=== PATIENT | female | born 1960 | race Caucasian/White ===

== ENCOUNTER 2019-01-02 16:07 | Outpatient (REF) | payer MEDICAID, SELFPAY ==
--- NOTE | 2019-01-02 14:45 | ENDOMET_PTH ---
PATIENT: Mary Lou Billingsley LOC: [facility] U#:[id number] AGE/SX: 58/F ROOM: RE01/02/[address]: Krishna Salcido MD : 1960 BED: DIS: 01/02/2019 SPEC #: [id number] RECD: 01/02/19 17:53 STATUS: CHANDLER REQ #: [id number] SABIHA: 01/02/19 14:[address]: Krishna Salcido DEPT: Surgical Specimen RECD BY: Kenia Milton ENTERED: 01/02/19 17:53 SP TYPE: Endomet OTHR DR: Cecil Uribe MD Tissues: 1 - ENDOMETRIUM BX/CURRETTE Procedures: GROSS AND MICRO LEVEL 4 Comments: [id number]
--- NOTE | 2019-01-02 14:45 | PAPFT_PTH ---
PATIENT: Mary Lou Billingsley LOC: [facility] U#:[id number] AGE/SX: 58/F ROOM: RE01/02/[address]: Krishna Salcido MD : 1960 BED: DIS: 01/02/2019 SPEC #: [id number] RECD: 01/02/19 18:26 STATUS: CHANDLER REQ #: [id number] SABIHA: 01/02/19 14:[address]: Krishna Salcido DEPT: [facility] Cytology RECD BY: Kenia Milton ENTERED: 01/02/19 18:26 SP TYPE: PAPFT OTHR DR: Cecil Uribe MD Tissues: 1 - CX/ENDOCX FOR PAP SMEARS Procedures: PAP THIN PREP/UVM Screening HPV DNA PROBE Comments: [id number]
== END 2019-01-02 16:27 ==
LOC: LBN 16:07
PROVIDERS: PCP Family Medicine; Visit Provider Obstetrics & Gynecology
DX: Z12.4 Encounter for screening for malignant neoplasm of cervix (principal); Z11.51 Encounter for screening for human papillomavirus (HPV); N85.8 Other specified noninflammatory disorders of uterus; N95.0 Postmenopausal bleeding
CPT/HCPCS: 88142; 88305; 87624

== ENCOUNTER 2019-01-04 03:34 | Outpatient (CLI) | payer MEDICAID, SELFPAY ==
--- NOTE | 2019-01-04 08:35 | DI.MAMMO_ITS ---
SYMPTOM/DIAGNOSIS: SCREENING, Z12.31 BILATERAL SCREENING MAMMOGRAPHY Mammograms were interpreted according to the usual protocol including computer analysis with CAD system, tomosynthesis and C view imaging. Comparison is made with 2017 and 2018. The breasts are composed of scattered fibroglandular densities, breast density category B. No suspicious masses or suspicious microcalcifications are seen. There has been no significant change. A nipple ring is again noted on the left. IMPRESSION: Category 1, negative mammogram. Yearly screening mammography is recommended. Breast density category B. MQSA ASSESSMENT OF FINDINGS: Negative. Category 1. Patient will receive a letter notifying them of these results. BI-RADS category B. There are scattered areas of fibroglandular density.
== END 2019-01-04 03:54 ==
PROVIDERS: PCP Family Medicine; Visit Provider Family Medicine
DX: Z12.31 Encounter for screening mammogram for malignant neoplasm of breast (principal); N95.0 Postmenopausal bleeding
CPT/HCPCS: 77063; 77067; 76830; 76856

== ENCOUNTER 2019-01-04 03:46 | Outpatient (CLI) | payer MEDICAID, SELFPAY ==
--- NOTE | 2019-01-04 07:18 | DI.US_ITS ---
SYMPTOMS/DIAGNOSIS: POSTMENOPAUSAL BLEEDING, N95.0 PELVIC ULTRASOUND: Transabdominal and transvaginal exams were performed. The transabdominal images are limited by lack of bladder distention. The uterus measures 6.3 x 3.2 x 4.5 cm. The endometrial stripe appears abnormally thickened for postmenopausal patient, measuring 8 mm. No focal endometrial abnormality is seen. There is a question of an anterior fibroid vs artifact. The right ovary was not able to be visualized. The left ovary is normal in size. There is no evidence of free fluid or hydronephrosis. IMPRESSION: Abnormally thickened endometrium of 8 mm without focal abnormality.
== END 2019-01-04 04:06 ==
PROVIDERS: PCP Family Medicine; Visit Provider Obstetrics & Gynecology
DX: N95.0 Postmenopausal bleeding (principal)
CPT/HCPCS: 76830; 76856

== ENCOUNTER 2019-01-31 10:28 | Outpatient (CLI) | payer MEDICAID, SELFPAY ==
[2019-01-31 10:53] LABS: Bilirubin Negative (Negative); Blood Small (Negative); Clarity Clear (Clear); Glucose Negative (Negative); Ketones Negative (Negative); Leukocyte Esterase Negative (Negative); Nitrite Negative (Negative); Urobilinogen 0.2 EU/dL (Up TO 0.2)
[2019-01-31 11:04] LABS: Bacteria Moderate HPF (Negative); C & S Indicated? No/Sq. Contamination; Casts Negative LPF (Negative); Crystals Negative HPF (Negative); Epithelial Cells Moderate HPF (Negative); Mucus Moderate (Negative); RBC 0-2 (0-2); WBC 0-2 HPF (0-5)
[2019-01-31 11:06] LABS: Abs Immature Grans 0.02 k/cumm (0.0-0.09); Absolute Basophil Count 0.02 k/cumm (0.0-0.2); Absolute Eosinophil Count 0.11 k/cumm (0.0-0.7); Absolute Lymphocyte Count 2.15 k/cumm (1.2-3.4); Absolute Monocyte Count 0.42 k/cumm (0.11-0.7); Absolute Neutrophil Count 3.52 k/cumm (1.2-6.7); Basophils % 0.3; Eosinophils % 1.8; HCT 47.2 % (36.0-46.0); HGB 15.5 g/dL (12.0-15.5); Immature Grans % 0.3; Lymphocytes % 34.5; Mean Corp. HGB Concentration 32.8 g/dL (32.0-36.0); Mean Corpuscular Hemoglobin 31.6 pg (27.0-33.0); Mean Corpuscular Volume 96.3 fL (80-95); Mean Platelet Volume 10.6 fL (8.0-11.0); Monocytes % 6.7; Neutrophils % 56.4; Platelet Count 234 x1000/uL (130-400); RBC Distribution Width 14.1 % (11.7-14.6); White Blood Cell Count 6.24 k/cumm (4.4-10.8)
[2019-01-31 12:15] LABS: ALT 40 U/L (14-59); AST 17 U/L (15-37); Alkaline Phosphatase 90 U/L (46-116); Anion Gap 7.2 mmol/L (3-11); BUN 14 mg/dL (7-18); Bilirubin, Total 0.6 mg/dL (0.2-1.0); CO2 28.8 mmol/L (21.0-32.0); CREATININE 0.72 mg/dL (0.55-1.02); Calcium 9.1 mg/dL (8.5-10.1); Chloride 104 mmol/L (98-107); Glucose 91 mg/dL (70-100); Potassium 4.8 mmol/L (3.5-5.1); Sodium 140 mmol/L (136-145); TSH (W/Ref FT4) 2.37 uIU/mL (0.36-3.74); Total Protein 7.2 g/dL (6.4-8.2); Vitamin B12 326 pg/mL (193-986)
[2019-02-02 05:47] LABS: Vitamin D 25 Total 28.8 ng/ml (30-100)
== END 2019-01-31 10:48 ==
PROVIDERS: Family Medicine; PCP Family Medicine; Visit Provider Family Medicine
DX: R53.83 Other fatigue (principal); E55.9 Vitamin D deficiency, unspecified; N95.0 Postmenopausal bleeding; Z01.812 Encounter for preprocedural laboratory examination; Z01.818 Encounter for other preprocedural examination
CPT/HCPCS: 36415; 80053; 82306; 85027; 86850; 86900; 86901; 81003; 81015; 82607; 84443; 85025

== ENCOUNTER 2019-02-01 07:37 | Day surgery (SDC) | payer MEDICAID, SELFPAY ==
[2019-02-01 08:00] VITALS: BP 148/92; PULSE 88; RESP 18; TEMP 36.7; O2SAT 95
[2019-02-01] MEDS: Lactated Ringers 1,000 ML 125 ML IV (08:45)
[2019-02-01] MEDS: Lidocaine 1% Multi-Dose 50 ML VIAL (09:30)
--- NOTE | 2019-02-01 09:34 | ENDOMET_PTH ---
PATIENT: Mary Lou Billingsley LOC: [facility] U#:[id number] AGE/SX: 58/F ROOM: RE02/01/[address]: Krishna Salcido MD : 1960 BED: DIS: 02/01/2019 SPEC #: [id number] RECD: 02/01/19 12:47 STATUS: CHANDLER REQ #: [id number] SABIHA: 02/01/19 09:[address]: Krishna Salcido DEPT: Surgical Specimen RECD BY: Kenia Milton ENTERED: 02/01/19 12:47 SP TYPE: Endomet OTHR DR: Cecil Uribe MD Tissues: 1 - ENDOMETRIUM BX/CURRETTE 2 - ENDOMETRIUM BX/CURRETTE Procedures: GROSS AND MICRO LEVEL 4 Comments: [id number]
[2019-02-01 09:50] VITALS: BP 164/97; PULSE 74; RESP 18; TEMP 36.6; O2SAT 95
[2019-02-01 09:55] VITALS: BP 179/96; PULSE 69; RESP 16; TEMP 36.6; O2SAT 96
[2019-02-01 10:00] VITALS: BP 165/88; PULSE 72; RESP 18; TEMP 36.6; O2SAT 96
[2019-02-01 10:15] VITALS: BP 176/77; PULSE 66; RESP 20; TEMP 36.5; O2SAT 98
[2019-02-01 11:00] VITALS: BP 148/90; PULSE 67; RESP 18; TEMP 36; O2SAT 95
--- NOTE | 2019-02-01 16:10 | W.PM.OP ---
Date of service: 02/01/19 Time of Service: 16:10 Operative Note DATE OF PROCEDURE: 02/01/19 PRE-OP DIAGNOSIS: Postmenopausal bleeding, Thickened endometrium POST-OP DIAGNOSIS: same PROCEDURE: Hysteroscopy, D&C, Polypectomy SURGEON: Krishna Salcido ASSISTING SURGEON: Beatriz Phillip ANESTHESIA: GETA ESTIMATED BLOOD LOSS: 0 PATHOLOGY: other (1. Endometrial polyp 2. Endometrial curettings ) COMPLICATIONS: None Patient was transported to: PACU Patient's condition: stable Findings: 1. Large endometrial polyp 2. Small submucosal fibroid Procedure Description: The patient was taken to the operating room and after adequate general anesthesia the patient was placed in lithotomy position. The patient was prepped and draped in usual sterile manner. A weighted speculum was placed in the vagina with good visualization of the cervix. A paracervical block with 10 mL's of 1% plain lidocaine solution was instilled. The anterior lip of the cervix was grasped with a single-tooth tenaculum. The cervix was gently dilated with Pisano dilators. The 5 mm 30 degree hysteroscope with normal saline distention media was advanced without difficulty. A large endometrial polyp appeared to occupy the majority in the medial cavity. Near the fundus along the anterior uterus a small submucosal fibroid was also noted. The hysteroscope was removed. Polyp forceps were used to remove the polyp easily. A sharp curettage was performed and tissue was submitted to pathology. A second pass with hysteroscope was made the polyp had been removed in its entirety. The submucosal fibroid was felt to not be problematic and was left intact. The procedure was concluded. Sponge instrument counts were correct at the conclusion of the procedure. All instrumentation was removed. The patient was transferred to PACU in stable condition.
== END 2019-02-01 11:27 | disposition home or self-care (01) ==
LOC: SUR 07:37
PROVIDERS: PCP Family Medicine; Visit Provider Obstetrics & Gynecology
PROC: 0UDB8ZZ Extraction of Endometrium, Via Natural or Artificial Opening Endoscopic (ICD-10-PCS; CPT 58558; principal; 2019-02-01 09:30)
DX: N95.0 Postmenopausal bleeding (principal); R93.89 Abnormal findings on diagnostic imaging of other specified body structures; N84.0 Polyp of corpus uteri; D25.0 Submucous leiomyoma of uterus; F17.210 Nicotine dependence, cigarettes, uncomplicated
CPT/HCPCS: 58558; 88305; J1100; J1885; J2250; J2405; J3010

== ENCOUNTER 2020-03-13 00:45 | Outpatient (CLI) | payer MEDICAID, SELFPAY ==
--- NOTE | 2020-03-13 06:45 | DI.CTLCSR_ITS ---
EXAM: CT CHEST LUNG CANCER SCREEN CLINICAL HISTORY: Screening for lung cancer, current smoker, F17.210 TECHNIQUE: Imaging Protocol: Axial computed tomography images with coronal and sagittal reformatted images were created and reviewed COMPARISON: No exams were available for comparison FINDINGS: Tracheobronchial tree: Patent . Mediastinum and Ly: No dominant adenopathy or fluid collection. Pulmonary parenchyma: No consolidation or dominant measurable mass. Moderate to severe emphysematous changes. Basilar scarring or atelectasis. Lung Nodules: None. Pleura: No effusion or pneumothorax. Heart: The heart is not dilated. Minimal coronary artery calcifications are seen. Aorta: Thoracic aorta non-dilated.Mild atherosclerotic changes. Upper abdomen: Unremarkable. Bones: Degenerative disc changes. Soft Tissues: Unremarkable. IMPRESSION: Emphysematous changes. No pulmonary nodules or masses. Category Lung RADS Cat 1 - Negative: No nodules and definitely benign nodules Lung-RADS 1.0 CATEGORIES: Category 0 - Prior chest CT exam(s) being located for comparison. Category 1 - Annual screening in 12 months. No nodules or definitely benign nodules. Category 2 - Annual screening in 12 months. Benign appearance. Nodules with low likelihood of becomin g active cancer. Category 3 - 6-month follow-up. Probably benign. Short-term follow-up suggested. Nodules with low lik elihood of becoming active cancer. Category 4A - 3-month follow-up and CT/PET if >8 mm in size. Suspicious finding. Findings which requi re additional testing. Category 4B - Findings which require additional testing and tissue sampling. Suspicious finding. C Added to Any of the Above - History of prior lung cancer screening. S Added to Any of the Above - Significant unexpected other finding. RADIATION DOSE DELIVERED: 69.94mGy.cm Total DLP DATA REPOSITORY: All CT scans at this facility are submitted to the National Radiology Data Registry (NRDR) Dose Index Registry (DIR) with the [employer] (ACR). RADIATION OPTIMIZATION: All CT scans at this facility use at least one of these dose optimization te chniques: automated exposure control; mA and/or kV adjustment per patient size (includes targeted exa ms where dose is matched to clinical indication); or iterative reconstruction.
--- NOTE | 2020-03-13 08:24 | DI.MAMMO_ITS ---
EXAM: MAMMO SCREENING CLINICAL HISTORY: screening, Z12.39 TECHNIQUE: Mammograms were interpreted according to the usual protocol including computer analysis w [employer] CAD system, tomosynthesis and C-view imaging. COMPARISON: 2016 through 2018 FINDINGS: The breasts are composed of scattered fibroglandular densities, Breast Density category B. No suspicious masses or suspicious microcalcifications are seen. No skin thickening or abnormal axillary lymph nodes are seen. There has been no significant change from prior exams. IMPRESSION: BI-RADS Category 1, Negative mammogram Yearly screening mammography is recommended. Breast Density - Category B, scattered fibroglandular densities. A negative radiographic report should not delay biopsy if a dominant or clinically suspicious mass is present. Up to ten percent of cancers are not identified on mammography. A negative report may reinforce clinical impression. Adenosis and dense breasts may obscure an underlying neoplasm. False positive reports average 6 to 10%. Patient will receive a letter notifying them of these results.
== END 2020-03-13 01:05 ==
PROVIDERS: PCP Family Medicine; Visit Provider Nurse Practitioner Family
DX: Z12.31 Encounter for screening mammogram for malignant neoplasm of breast (principal); F17.210 Nicotine dependence, cigarettes, uncomplicated
CPT/HCPCS: 77063; 77067; G0297

== ENCOUNTER 2020-03-13 01:33 | Outpatient (CLI) | payer MEDICAID, SELFPAY ==
[2020-03-13 08:20] LABS: Hemoglobin A1C 5.6 % (<5.7)
[2020-03-13 08:49] LABS: Anion Gap 7.1 mmol/L (3-11); BUN 23 mg/dL (7-18); CO2 28.9 mmol/L (21.0-32.0); CREATININE 0.66 mg/dL (0.55-1.02); Calcium 9.5 mg/dL (8.5-10.1); Calculated LDL 134 mg/dL (<100); Chloride 104 mmol/L (98-107); Cholesterol 209 mg/dL (<200); Glucose 107 mg/dL (74-106); HDL Cholesterol 62 mg/dL (40-60); Sodium 140 mmol/L (136-145); Triglyceride 67 mg/dL (<150)
== END 2020-03-13 01:53 ==
PROVIDERS: PCP Family Medicine; Visit Provider Nurse Practitioner Family
DX: E78.5 Hyperlipidemia, unspecified (principal); E66.9 Obesity, unspecified
CPT/HCPCS: 36415; 80048; 80061; 83036

== ENCOUNTER 2021-04-07 01:51 | Outpatient (CLI) | payer MEDICAID, SELFPAY ==
--- NOTE | 2021-04-07 06:45 | DI.CTLCSR_ITS ---
Exam(s) CT CHEST LUNG CANCER SCREEN EXAM: CT CHEST LUNG CANCER SCREEN CLINICAL HISTORY: Screening for lung cancer,current smoker, f17.210. TECHNIQUE: Imaging Protocol: Low Dose Technique CONTRAST MATERIAL: None COMPARISON: CT CT CHEST LUNG CANCER SCREEN from 03/13/2020 FINDINGS: CHEST: LUNGS: COPD-emphysematous changes are again noted bilaterally. There is atelectasis some scarring in right middle lobe again noted. Also in the posterior basal segment of the right lower lobe. No new right lung findings. In the left lung there are mild subpleural markings in left lower lobe and the re is atelectasis in the lingular segment again noted. There are no new ominous pulmonary nodules. No pleural effusions. MEDIASTINUM: There is no obvious hilar nor mediastinal adenopathy. CARDIAC: Heart size is normal. There is no pericardial effusion.Caliber of the thoracic aorta is wit hin normal limits. OTHER: OSSEOUS: No significant osseous lesions.. IMPRESSION: 1. Emphysematous changes with chronic unchanged findings in the right middle lobe and lingular segmen t of the left lung, unchanged. No new ominous pulmonary nodules. 2. No pleural effusions. 3. Lung RADS Cat 1 - Negative: No nodules and definitely benign nodules Lung-RADS 1.0 CATEGORIES: Category 0 - Prior chest CT exam(s) being located for comparison. Category 1 - Annual screening in 12 months. No nodules or definitely benign nodules. Category 2 - Annual screening in 12 months. Benign appearance. Nodules with low likelihood of becomin g active cancer. Category 3 - 6-month follow-up. Probably benign. Short-term follow-up suggested. Nodules with low lik elihood of becoming active cancer. Category 4A - 3-month follow-up and CT/PET if >8 mm in size. Suspicious finding. Findings which requi re additional testing. Category 4B - Findings which require additional testing and tissue sampling. Modifier S- Potentially clinically significant findings (non lung cancer) RADIATION DOSE DELIVERED: 83.54mGy.cm Total DLP CTDIvol DATA REPOSITORY: All CT scans at this facility are submitted to the National Radiology Data Registry (NRDR) Dose Index Registry (DIR) with the [employer] (ACR). RADIATION OPTIMIZATION: All CT scans at this facility use at least one of these dose optimization te chniques: automated exposure control; mA and/or kV adjustment per patient size (includes targeted exa ms where dose is matched to clinical indication); or iterative reconstruction.
== END 2021-04-07 02:11 ==
PROVIDERS: PCP Family Medicine; Visit Provider Family Medicine
DX: Z12.2 Encounter for screening for malignant neoplasm of respiratory organs (principal); F17.210 Nicotine dependence, cigarettes, uncomplicated; J44.9 Chronic obstructive pulmonary disease, unspecified; J98.4 Other disorders of lung
CPT/HCPCS: 71271

== ENCOUNTER → 2022-04-15 01:14 | Outpatient (CLI) | payer MEDICAID, SELFPAY ==
--- NOTE | 2022-04-15 07:15 | DI.MAMMO_ITS ---
Exam(s) MAMMO SCREENING EXAM: MAMMO SCREENING CLINICAL HISTORY: screening,Z12.39 TECHNIQUE: Bilateral full field digital CC and MLO mammographic images were obtained with 3D tomosyn thesis and utilizing computer aided detection (CAD). COMPARISON: Available for comparison. FINDINGS: Masses/Architectural Distortion: None seen. Microcalcifications: No suspicious pleomorphic-type are seen. Skin Thickening/Nipple Retraction: None. IMPRESSION: 1. No significant interval change with no specific features of malignancy noted. 2. Unless there is more urgent need, screening mammography is recommended, as per [employer] guidelines. BI-RADS Category 1 - Negative Breast Density - Category B - Scattered areas of fibroglandular density Breast density category C or D implies that the patient has dense breast tissue. Dense breast tissue is very common and is not abnormal but dense breast tissue can make it harder to find cancer on a ma mmogram. Also, dense breast tissue may increase their breast cancer risk. This information about the result of the mammogram report was provided to the patient to raise their awareness. Use this report when you speak with the patient about their risks for breast cancer, which includes their family hist ory. At that time, you may recommend for more screening tests (Ultrasound or MRI) as they might be us eful based on their risk. A negative radiographic report should not delay biopsy if a dominant or clinically suspicious mass is present. Up to ten percent of cancers are not identified on mammography. A negative report may reinforce clinical impression. Adenosis and dense breasts may obscure an underlying neoplasm. False positive reports average 6 to 10%. Patient will receive a letter notifying them of these results.
--- NOTE | 2022-04-15 11:03 | DI.CTLCSR_ITS ---
Exam(s) CT CHEST LUNG CANCER SCREEN EXAM: CT CHEST LUNG CANCER SCREEN CLINICAL HISTORY: Screening for lung cancer,CURRENT SMOKER, F17.210 TECHNIQUE: Imaging Protocol: Axial computed tomography images with coronal and sagittal reformatted images were created and reviewed COMPARISON: CT CT CHEST LUNG CANCER SCREEN from 04/07/2021 FINDINGS: Tracheobronchial tree: Patent where visualized. Pulmonary parenchyma: No consolidation or dominant measurable mass. Moderate emphysematous changes ar e present in the lungs. Pleural and parenchymal scarring is present. This is most notable in the ri ght upper and middle lobes. Lung Nodules: None. Mediastinum and Ly: No dominant adenopathy or fluid collection. The esophagus is unremarkable. Thyroid gland: Unremarkable. Lymph nodes: Unremarkable. Pleura: No effusion or pneumothorax. Heart: The heart is not dilated. Mild coronary artery calcification is present. No pericardial effus ion. Aorta: Thoracic aorta non-dilated.Atherosclerosis is present. Upper abdomen: Unremarkable. Soft Tissues: Unremarkable. Bones: Within normal limits. IMPRESSION: No pulmonary nodules. Lung RADS Cat 1 - Negative: No nodules and definitely benign nodules Lung-RADS 1.0 CATEGORIES: Category 0 - Prior chest CT exam(s) being located for comparison. Category 1 - Annual screening in 12 months. No nodules or definitely benign nodules. Category 2 - Annual screening in 12 months. Benign appearance. Nodules with low likelihood of becomin g active cancer. Category 3 - 6-month follow-up. Probably benign. Short-term follow-up suggested. Nodules with low lik elihood of becoming active cancer. Category 4A - 3-month follow-up and CT/PET if >8 mm in size. Suspicious finding. Findings which requi re additional testing. Category 4B - Findings which require additional testing and tissue sampling. Suspicious finding. Category 4X - Category 3 or 4 nodules with additional features or imaging findings that increases the suspicion of malignancy. Modifier S- Potentially clinically significant finding. (Non lung cancer) RADIATION DOSE DELIVERED: Total DLP !Error CTDIvol Total DLP !Error CTDIvol DATA REPOSITORY: All CT scans at this facility are submitted to the National Radiology Data Registry (NRDR) Dose Index Registry (DIR) with the [employer] (ACR). RADIATION OPTIMIZATION: All CT scans at this facility use at least one of these dose optimization te chniques: automated exposure control; mA and/or kV adjustment per patient size (includes targeted exa ms where dose is matched to clinical indication); or iterative reconstruction.
== END ==
PROVIDERS: PCP Family Medicine; Visit Provider Family Medicine
DX: Z12.31 Encounter for screening mammogram for malignant neoplasm of breast (principal); Z12.2 Encounter for screening for malignant neoplasm of respiratory organs; F17.210 Nicotine dependence, cigarettes, uncomplicated; J43.8 Other emphysema
CPT/HCPCS: 71271; 77063; 77067

== ENCOUNTER 2022-09-12 12:53 | Observation (INO) | payer MEDICAID, SELFPAY ==
[2022-09-12] VITALS (38 sets, daily range): BP systolic 135–190; BP diastolic 67–118; PULSE 86–112; RESP 4–27; TEMP 36.4–37; O2SAT 87–98
--- NOTE | 2022-09-12 13:15 | W.ED.GENAD ---
Discharge Plan Disposition Patient Disposition: Admit to [facility] Discharge Details Clinical Impression: Acute exacerbation of chronic obstructive pulmonary disease, Smoker Admit Date/Time: 09/12/22 16:04 Admit Provider: Katie Theodore Attending Provider: Katie Theodore Primary Care Provider: Jaylin Valdivia ED Provider: Peace Torre Discharge Data Discharge Date/Time-TO BE ENTERED AT DEPARTURE: 09/12/22 16:49 Medical Decision Making 1310 -- 62-year-old female with a history of asthma and COPD and chronic tobacco smoker presents for cough and shortness of breath for the past week, worse today. She was seen by her PCP earlier this week and started on oral steroids of which her last dose was today. Patient has mild work of breathing. She is speaking in 3-4 word sentences. Her oxygen saturation is 90% on room air. She has diminished breath sounds throughout. No lower extremity edema. She has no chest pain to suggest ACS, PE or dissection. Differential diagnosis includes acute asthma or COPD exacerbation, bronchitis, pneumonia, COVID, CHF. Will obtain screening labs, chest x-ray and give DuoNeb, albuterol neb, Solu-Medrol, fluid bolus and reassess. 1415 -- patient denies any improvement after DuoNeb and 5 mg albuterol neb. Oxygen saturation 88% on room air. Patient placed on 2 L nasal cannula oxygen and improved to 92%. She appears more tachypneic. She has some improvement in breath sounds. Will order an additional 5 mg albuterol neb and changed to portable chest x-ray. Respiratory therapy paged. Will have BiPAP on standby. Labs reviewed. Normal white blood cell count. Hemoglobin 16 likely in the setting of history of smoking. D-dimer, troponin and BNP within normal limits. FLUVID negative. Chest x-ray notes patchy subsegmental atelectasis versus early inflammation but no interval lobar consolidation. 1500 -- patient reports she is feeling better. Oxygen saturation 88% on RA. ABG notes a normal pH 7.4 with reassuring CO2 and an O2 saturation of 88% on room air. Patient placed back on 1 L nasal cannula oxygen and will admit for serial nebs, steroids and observation. As she has had productive green sputum, and is a smoker, will add IV antibiotics. Patient is agreeable with plan. Case discussed with hospitalist who accepts patient for admission. IV Zithromax and Rocephin ordered. Procalcitonin ordered. Medical Records Medical records reviewed: Yes I reviewed the patient's medical records. Imaging Data Radiologic Study: Radiologist's impression: XR Chest Exam date and time: 09/12/2022 2:26 PM Age: 62 years old Clinical indication: Cough and shortness of breath.No history of trauma or recent surgery is provided. TECHNIQUE: Imaging protocol: Radiologic exam of the chest. 1image(s) are provided. Views: 1 view. COMPARISON: CT CHEST LUNG CANCER SCREEN 04/15/2022 10:58 AM. No previous chest radiograph is currently available. CT chest of 03/13/2020. FINDINGS: Lungs: There is chronic emphysematous air trapping and scarring type appearance similar overall including at the left lung base as well as right midlung zone. No lobar consolidation is appreciated. There is some patchy and bandlike opacification of the lung bases appears slightly increased overall. Pleural spaces: No pneumothorax or pleural effusion is appreciated. Heart/Mediastinum: The cardiomediastinal silhouette is upper normal in size.This can be seen with central averaging as well as dejon enlargement.No cardiac decompensation is appreciated. Diaphragm: The hemidiaphragms are symmetric. Bones/joints: Osseous alignment is maintained.No interval displaced fracture or dislocation is appreciated. Soft tissues: No radiopaque foreign body or subcutaneous emphysema is appreciated. Other findings: No other significant interval changes are appreciated. IMPRESSION: There is some patchy subsegmental atelectasis versus early inflammation of the lung bases along with chronic emphysematous appearance. No interval lobar consolidation or cardiac decompensation is appreciated. Lab Data Lab results reviewed: Yes I reviewed the patient's lab results. Labs: Laboratory Tests Range/Units 09/12/22 09/12/22 09/12/22 13:15 13:15 13:15 WBC (4.4-10.8) 10^3/uL 10.76 RBC (3.93-5.22) 10^6/uL 5.10 Hgb (11.2-15.7) g/dL 16.3 H Hct (36.0-46.0) % 48.2 H MCV (80-95) fL 95 MCH (27.0-33.0) pg 32.0 MCHC (32.0-36.0) % 33.8 RDW (11.7-14.6) % 13.2 Plt Count (130-400) 10^3/uL 238 MPV (8.0-11.0) fL 10.1 Immature Gran % 0.4 Neutrophils % 66.0 Lymphocytes % 25.7 Monocytes % 7.1 Eosinophils % 0.5 Basophils % 0.3 Nucleated RBC % (0.0-0.3) % 0.0 Absolute Neutrophils (1.2-6.7) 10^3/uL 7.11 H Absolute Lymphocytes (1.2-3.4) 10^3/uL 2.77 Absolute Monocytes (0.1-0.8) 10^3/uL 0.76 Absolute Eosinophils (0.0-0.7) 10^3/uL 0.05 Absolute Basophils (0.0-0.2) 10^3/uL 0.03 D-Dimer (<500) ng/mlFEU 373 ABG Sample Site ABG pH (7.35-7.45) ABG pCO2 (35-45) mmHg ABG pO2 (80-105) mmHg ABG HCO3 (22-26) mmol/L ABG Total CO2 (23-27) mmol/L ABG O2 Saturation (95-98) % ABG Base Excess (-2-3) mmol/L Oxygen Liter Flow L FiO2 % Sodium (136-145) mmol/L 137 Potassium (3.5-5.1) mmol/L 3.6 Chloride (98-107) mmol/L 103 Carbon Dioxide (21.0-32.0) mmol/L 26.4 Anion Gap (3-11) mmol/L 7.6 BUN (7-18) mg/dL 21 H Creatinine (0.55-1.02) mg/dL 0.7 Est GFR (CKD-EPI 2020) (mL/min/1.73m2) 98.95 Glucose (74-106) mg/dL 139 H Calcium (8.5-10.1) mg/dL 9.2 Magnesium (1.8-2.4) mg/dL 1.6 L Total Bilirubin (0.2-1.0) mg/dL 0.5 AST (15-37) U/L 33 ALT (14-59) U/L 61 H Alkaline Phosphatase (46-116) U/L 110 Troponin I (<or=60) ng/L < 50 NT-Pro-B Natriuret Pep (<300) pg/mL 134 Total Protein (6.4-8.2) g/dL 7.4 Albumin (3.4-5.0) g/dL 3.5 COVID-19 Source SARS-CoV-2 (PCR) (Negative) Influenza Type A (PCR) (Negative) Influenza Type B (PCR) (Negative) RSV (PCR) (Negative) Range/Units 09/12/22 09/12/22 09/12/22 13:15 13:27 14:56 WBC (4.4-10.8) 10^3/uL RBC (3.93-5.22) 10^6/uL Hgb (11.2-15.7) g/dL Hct (36.0-46.0) % MCV (80-95) fL MCH (27.0-33.0) pg MCHC (32.0-36.0) % RDW (11.7-14.6) % Plt Count (130-400) 10^3/uL MPV (8.0-11.0) fL Immature Gran % Neutrophils % Lymphocytes % Monocytes % Eosinophils % Basophils % Nucleated RBC % (0.0-0.3) % Absolute Neutrophils (1.2-6.7) 10^3/uL Absolute Lymphocytes (1.2-3.4) 10^3/uL Absolute Monocytes (0.1-0.8) 10^3/uL Absolute Eosinophils (0.0-0.7) 10^3/uL Absolute Basophils (0.0-0.2) 10^3/uL D-Dimer (<500) ng/mlFEU ABG Sample Site Left Radial ABG pH (7.35-7.45) 7.41 ABG pCO2 (35-45) mmHg 37 ABG pO2 (80-105) mmHg 53 L ABG HCO3 (22-26) mmol/L 24 ABG Total CO2 (23-27) mmol/L 21 L ABG O2 Saturation (95-98) % 88 L ABG Base Excess (-2-3) mmol/L -1 Oxygen Liter Flow L 0 FiO2 % 21 Sodium (136-145) mmol/L Potassium (3.5-5.1) mmol/L Chloride (98-107) mmol/L Carbon Dioxide (21.0-32.0) mmol/L Anion Gap (3-11) mmol/L BUN (7-18) mg/dL Creatinine (0.55-1.02) mg/dL Est GFR (CKD-EPI 2020) (mL/min/1.73m2) Glucose (74-106) mg/dL Calcium (8.5-10.1) mg/dL Magnesium (1.8-2.4) mg/dL Total Bilirubin (0.2-1.0) mg/dL AST (15-37) U/L ALT (14-59) U/L Alkaline Phosphatase (46-116) U/L Troponin I (<or=60) ng/L NT-Pro-B Natriuret Pep (<300) pg/mL Cancelled Total Protein (6.4-8.2) g/dL Albumin (3.4-5.0) g/dL COVID-19 Source Nasopharynx SARS-CoV-2 (PCR) (Negative) Negative Influenza Type A (PCR) (Negative) Negative Influenza Type B (PCR) (Negative) Negative RSV (PCR) (Negative) Negative ECG Data Attestation: I personally reviewed and interpreted this ECG (s) as follows: Interpretation: Rate of 86, sinus, normal axis, normal intervals, no STEMI. HPI General Mode of arrival: ambulatory. Date/Time Provider Initiated Documentation: 09/12/22 12:54. Limitations to Documentation: no limitations. Information obtained by: patient. HPI Narrative: Patient is a 8-year-old female with a history of asthma and COPD who is a chronic tobacco smoker who presents for shortness of breath for the past week, worse today. Patient states she was seen at [facility] this week for her symptoms and placed on oral prednisone which she finished today. Patient denies any relief with oral steroids. Patient states her cough has been worse at the start of her illness last week ago but states it is still present and she is still coughing up yellow-green sputum. She denies any hemoptysis. She states she takes her Symbicort twice daily and ProAir inhaler as needed. She denies any known fever, chest pain, vomiting or leg swelling. She denies any recent antibiotics. She states she has never been on home oxygen. She denies any history of intubations. Related Data Home Medications Medication Instructions Recorded Confirmed multivit with 1 ea PO DAILY 03/09/17 09/08/22 djlclxvr-lvnp-SK-lutein 8 mg iron-400 mcg-300 mcg tablet (Centrum Silver Women) cholecalciferol (vitamin D3) 125 5,000 unit PO DAILY #90 caps 02/08/19 09/08/22 mcg (5,000 unit) capsule benzonatate 100 mg capsule 100 mg PO TID PRN cough #20 caps 03/27/22 09/08/22 bupropion HCl 150 mg 24 hr tablet, 150 mg PO QAM #90 tabs 04/13/22 09/12/22 extended release albuterol sulfate 90 mcg/actuation 2 puff inhalation Q6H PRN 09/08/22 09/08/22 aerosol inhaler (Ventolin HFA) shortness of breath or wheezing #8.5 grams budesonide-formoterol HFA 80 2 puff inhalation BID #10.2 grams 09/14/22 mcg-4.5 mcg/actuation aerosol inhaler (Symbicort) nicotine 10 mg inhalation cartridge 1 inh inhalation 12XD PRN #168 ea 09/14/22 prednisone 10 mg tablet See Taper PO DIRECTED #40 tabs 09/14/22 tiotropium bromide 2.5 2 puff inhalation DAILY #4 grams 09/14/22 mcg/actuation mist for inhalation (Spiriva Respimat) varenicline 0.5 mg (11)-1 mg (42) See Rx Instructions PO PER PKG DIR 09/14/22 tablets in a dose pack #53 dose pk varenicline 1 mg tablet 1 mg PO DAILY #56 tabs 09/14/22 Previous Rx's Medication Instructions Recorded cholecalciferol (vitamin D3) 125 5,000 unit PO DAILY #90 caps 02/08/19 mcg (5,000 unit) capsule benzonatate 100 mg capsule 100 mg PO TID PRN cough #20 caps 03/27/22 bupropion HCl 150 mg 24 hr tablet, 150 mg PO QAM #90 tabs 04/13/22 extended release albuterol sulfate 90 mcg/actuation 2 puff inhalation Q6H PRN 09/08/22 aerosol inhaler (Ventolin HFA) shortness of breath or wheezing #8.5 grams budesonide-formoterol HFA 80 2 puff inhalation BID #10.2 grams 09/14/22 mcg-4.5 mcg/actuation aerosol inhaler (Symbicort) nicotine 10 mg inhalation cartridge 1 inh inhalation 12XD PRN #168 ea 09/14/22 prednisone 10 mg tablet See Taper PO DIRECTED #40 tabs 09/14/22 tiotropium bromide 2.5 2 puff inhalation DAILY #4 grams 09/14/22 mcg/actuation mist for inhalation (Spiriva Respimat) varenicline 0.5 mg (11)-1 mg (42) See Rx Instructions PO PER PKG DIR 09/14/22 tablets in a dose pack #53 dose pk varenicline 1 mg tablet 1 mg PO DAILY #56 tabs 09/14/22 Allergies Allergy/AdvReac Type Severity Reaction Status Date / Time No Known Drug Allergies Allergy Verified 09/08/22 14:35 General Stated Complaint: SOB BENY: 3 Review of Systems All systems reviewed & are unremarkable except as noted in HPI and below Constitutional Constitutional: Reports as per HPI, Denies chills and Denies fever(s) Eyes Eyes: Denies blurry vision ENT Ears, Nose, Mouth, and Throat: Denies dizziness, Denies sore throat and Denies throat swelling Cardiovascular Cardiovascular: Denies chest pain and Reports dyspnea Respiratory Respiratory: Reports cough and Reports dyspnea Gastrointestinal Gastrointestinal: Denies abdominal pain, Denies diarrhea and Denies vomiting Genitourinary Genitourinary: Denies hematuria and Denies dysuria Musculoskeletal Musculoskeletal: Denies back pain and Denies numbness Integumentary/Breasts Skin/Breast: Denies lesions and Denies rash Neurologic Neurologic: Denies dizziness, Denies localized weakness and Denies numbness Allergic/Immunologic Allergic/Immunologic: Denies throat swelling PFSH All Active Problems (Updated 09/15/22 @ 00:05 by [employer]) Respiratory failure with hypoxia (Acute) Pneumonia (Acute) Elevated BP without diagnosis of hypertension (Acute) Acute exacerbation of COPD with asthma (Acute) Asthma (Chronic) Medical History (Updated 09/15/22 @ 00:05 by [employer]) Alcohol abuse Anxiety Improved on buspirone. Will increase buspirone to 10 mg twice a day to achieve results. Cigarette smoker Annual lung cancer screening. Negative 03/12 Hx of recurrent pneumonia Hyperlipidemia Major depressive disorder with current active episode Smoker Telogen effluvium Vitamin D deficiency Surgical History Endometrial polyp s/p D+C History of arthroscopic knee surgery History of bilateral ligation of fallopian tubes Family History Mother , AGE 65 ALS (amyotrophic lateral sclerosis) Father , AGE 35 Suicide Sister No problems noted. Paternal Grandmother Heart disease Lupus Daughter Depression Anxiety Daughter No problems noted. Daughter No problems noted. Social History Smoking/Tobacco Use Status: Current every day Tobacco Type: cigarettes Smoking packs per day: 1 Smoking cigarettes per day: 20.0 Years smoked: 41 Smoking pack-years: 41.00 Tobacco: How many years used: 41 Quit status: considering quitting Second Hand Exposure: Yes Counseling given: provider counseling, support medications and counseling >3 minutes Smoking risk assessment performed?: Yes Alcohol Intake: current Alcohol Intake frequency: a few times a week Alcohol type: hard liquor Counseling provided: provider counseling Drug use: Daily Substance use type: marijuana Caregiver/Support person: No Household members: spouse Housing: house Number of Children: 3 number of grandchildren: 4 Communication Needs: None Education Level: high school Do you need help understanding health information?: Never current occupation: Owns [employer] business, works in a [employer]. Pets and animals: Yes Pets and animals: dog(s) Sexually active: Yes Do you think of yourself as: straight/heterosexual Current gender identity: female What is your relationship status?: How often do you talk on the phone with friends or family?: three or more times per week How often do you get together with friends or relatives?: once per week How often do you attend restorationism or sikhism services?: 1-3 times per year Do you belong to any clubs or organized social groups?: no Panel score (0-1 are the most socially isolated patients): 2 Duration: < 15 minutes/day Genevieve/Baptism: Hinduism Special genevieve needs: No Seatbelt use: always Helmet use: Yes Helmet use: sometimes Drive intox or ride w/intox route driver: No Do you feel safe at home: Yes Do you feel safe in your relationship?: Yes History History 4 Para 4 Hx # Term Pregnancies Multiple births Hx # Pregnancies Ectopic pregnancies AB induced Hx Number of Living Children 3 AB spontaneous Exam Const General: cooperative and no acute distress Nutritional Appearance: overweight Orientation: alert, awake and oriented x3 HENMT Head: normal to inspection Ears: hearing grossly normal bilaterally and external ears normal Face and sinus: normal facial exam Throat: posterior oropharynx normal Eyes General: appearance normal, both eyes and all related structures Pupils: PERRL EOM: EOM intact bilaterally Neck Neck: normal visual inspection and No submandibular swelling Lymphatic: no lymphadenopathy noted Chest Chest: normal inspection of the chest and no tenderness Resp Effort & Inspection: normal respiratory effort and not able to speak in complete sentences (speaks in 3-4 word sentences) Auscultation: diminished lung sounds bilaterally throughout Cardio Rate: tachycardic Rhythm: regular rhythm GI Inspection: normal to inspection and obesity Palpation: soft, not firm, not rigid and nontender Auscultation: hypoactive bowel sounds Back/Spine/Pelvis Thoracic/Lumbar Spine: thoracic and lumbar spine normal to inspection Skin General skin exam: no rashes or lesions noted Neuro General: patient alert, patient awake and patient oriented x3 Cognition: normal cognition Speech: speech normal Motor: muscle tone normal throughout Sensory Exam: no sensory deficits noted Extrem General: normal to inspection, full ROM, capillary refill normal, no calf tenderness bilaterally and no edema Psych Appearance: grossly normal Mental Status: mental status grossly normal Speech and Movement: speech and movement normal Affect: normal affect Course Vital Signs Vital signs: Vital Signs Temperature 97.6 F 09/12/22 12:58 Pulse 100 H 09/12/22 12:58 Pulse Oximetry 90 L 09/12/22 12:58 Temperature 97.6 F 09/12/22 12:58 Pulse 100 H 09/12/22 12:58 Pulse Oximetry 90 L 09/12/22 12:58 Oxygen Delivery Method Room Air 09/12/22 12:58 Oxygen Flow Rate 0 09/12/22 12:58 Critical Care Time Critical Care Time Critical Care Time: Yes Total Critical Care Time: 30 Attestation: I spent 30 minutes of critical care time with this patient. This does not include time spent on separately reported billable procedures.
[2022-09-12] MEDS: Normal Saline 250 ML IV (13:30)
--- NOTE | 2022-09-12 13:30 | RT.EKG_ITS ---
APPROVED REPORT Exam: Resting ECG Reason for Exam: sob Patient Location: E HR:86 bpm ECG Measurements Heart Rate 86 AXIS NE 145 P 82 QRSd 106 QRS 70 QT 356 T 52 QTc 426 Conclusion Sinus rhythm...normal P axis, V-rate 60- 99. Sinus. Normal axis. No STEMI. I have reviewed and interpreted ECG and agree with software generated interpretation.
[2022-09-12] MEDS: Albuterol/Ipratropium 3 ML UPD VIAL UPD ×2 (13:31→19:13)
[2022-09-12] MEDS: methylPREDNISolone SUCC 125 MG VIAL IVP (13:32)
[2022-09-12 13:36] LABS: Abs Immature Grans 0.04 10^3/uL (0.0-0.06); Absolute Basophil Count 0.03 10^3/uL (0.0-0.2); Absolute Eosinophil Count 0.05 10^3/uL (0.0-0.7); Absolute Lymphocyte Count 2.77 10^3/uL (1.2-3.4); Absolute Monocyte Count 0.76 10^3/uL (0.1-0.8); Absolute Neutrophil Count 7.11 10^3/uL (1.2-6.7); Basophils % 0.3; Eosinophils % 0.5; HCT 48.2 % (36.0-46.0); HGB 16.3 g/dL (11.2-15.7); Immature Grans % 0.4; Lymphocytes % 25.7; MCHC 33.8 % (32.0-36.0); MCV 95 fL (80-95); MPV 10.1 fL (8.0-11.0); Monocytes % 7.1; Platelet Count 238 10^3/uL (130-400); RDW 13.2 % (11.7-14.6); RDW-SD 46.5 fL; WBC 10.76 10^3/uL (4.4-10.8)
[2022-09-12] MEDS: Albuterol 2.5 MG/3 ML INH SOLN VIAL 5 MG UPD ×2 (13:37→14:23)
[2022-09-12 13:58] LABS: ALT 61 U/L (14-59); AST 33 U/L (15-37); Albumin 3.5 g/dL (3.4-5.0); Alkaline Phosphatase 110 U/L (46-116); Anion Gap 7.6 mmol/L (3-11); BUN 21 mg/dL (7-18); Bilirubin, Total 0.5 mg/dL (0.2-1.0); CO2 26.4 mmol/L (21.0-32.0); CREATININE 0.7 mg/dL (0.55-1.02); Calcium 9.2 mg/dL (8.5-10.1); Chloride 103 mmol/L (98-107); Estimated GFR 98.95 (mL/min/1.73m2); Glucose 139 mg/dL (74-106); Magnesium 1.6 mg/dL (1.8-2.4); NT-proBNP 134 pg/mL (<300); Potassium 3.6 mmol/L (3.5-5.1); Sodium 137 mmol/L (136-145); Total Protein 7.4 g/dL (6.4-8.2); Troponin I < 50 ng/L (<or=60)
[2022-09-12 14:08] LABS: COVID-19 PCR Negative (Negative); Influenza A PCR Negative (Negative); Influenza B PCR Negative (Negative); RSV PCR Negative (Negative)
[2022-09-12 14:09] LABS: D-Dimer 373 ng/mlFEU (<500)
[2022-09-12 14:11] LABS: Source Nasopharynx
--- NOTE | 2022-09-12 14:15 | DI.RAD_ITS ---
Exam(s) XR PORTABLE CHEST AP EXAM: XR PORTABLE CHEST AP CLINICAL HISTORY: cough, sob, r/o acute disease TECHNIQUE: 2D digital imaging was performed. COMPARISON: CT CT CHEST LUNG CANCER SCREEN from 04/15/2022 FINDINGS: Exam somewhat limited by leads overlying the right lower chest. LUNGS: Emphysematous changes are not ed in the upper lobes.. There is a question of increased densities at both lung bases which could rep resent developing infiltrates. No pleural abnormality seen. HEART: Normal size. AORTA: Normal diameter. BONES: Degenerative changes in the spine. Soft tissues: Unremarkable. IMPRESSION: Findings suspicious for bibasilar infiltrates. DATA REPOSITORY: RADIATION DOSE DELIVERED:
[2022-09-12] MEDS: MAGNESIUM SULFATE 1 GM/100 ML BAG IVPB (14:34)
--- NOTE | 2022-09-12 14:52 | DI.VRAD_ITS ---
PROCEDURE INFORMATION: Exam: XR Chest Exam date and time: 09/12/2022 2:26 PM Age: 62 years old Clinical indication: Cough and shortness of breath.No history of trauma or recent surgery is provided. TECHNIQUE: Imaging protocol: Radiologic exam of the chest. 1image(s) are provided. Views: 1 view. COMPARISON: CT CHEST LUNG CANCER SCREEN 04/15/2022 10:58 AM. No previous chest radiograph is currently available. CT chest of 03/13/2020. FINDINGS: Lungs: There is chronic emphysematous air trapping and scarring type appearance similar overall including at the left lung base as well as right midlung zone. No lobar consolidation is appreciated. There is some patchy and bandlike opacification of the lung bases appears slightly increased overall. Pleural spaces: No pneumothorax or pleural effusion is appreciated. Heart/Mediastinum: The cardiomediastinal silhouette is upper normal in size.This can be seen with central averaging as well as dejon enlargement.No cardiac decompensation is appreciated. Diaphragm: The hemidiaphragms are symmetric. Bones/joints: Osseous alignment is maintained.No interval displaced fracture or dislocation is appreciated. Soft tissues: No radiopaque foreign body or subcutaneous emphysema is appreciated. Other findings: No other significant interval changes are appreciated. IMPRESSION: There is some patchy subsegmental atelectasis versus early inflammation of the lung bases along with chronic emphysematous appearance. No interval lobar consolidation or cardiac decompensation is appreciated. Dictated and Authenticated by: Asa Richter MD. Ordering:UMESH Hand MD
[2022-09-12 15:19] LABS: BE -1 mmol/L (-2-3); HCO3 24 mmol/L (22-26); pCO2 37 mmHg (35-45); pH 7.41 (7.35-7.45); pO2 53 mmHg (80-105); sO2 88 % (95-98); tCO2 21 mmol/L (23-27)
[2022-09-12 15:22] LABS: FIO2 21 %; FIO2L 0 L; Site Left Radial
--- NOTE | 2022-09-12 16:25 | W.PM.HP.N ---
Date of service: 09/12/22 Time of Service: 16:25 Assessment and Plan Assessment and plan (1) Acute exacerbation of COPD with asthma: Status: Acute Assessment and plan: Requiring oxygen, is not oxygen dependent at home. Steroids, nebs, abx, oxygen Sputum - moderate gram positive diplococci - ceftriaxone IV IS Acapella Pulmonology consult (2) Smoker: Status: Acute Assessment and plan: Stop smoking information States she has not smoked in 1 week Offer nicotine replacement - declined states I quit. (3) Anxiety: Status: Acute Assessment and plan: Continue Buspar Lorazepam prn (4) Elevated BP without diagnosis of hypertension: Status: Acute Assessment and plan: BP is high here, however she is not breathing well, getting steroids, and is tachycardic. She has had high BP since she arrived. Will have PCP follow up - asked patient to keep logs of BP when she gets home and bring that log with her to PCP appt. (5) Hyperlipidemia: Status: Acute Assessment and plan: Diet controlled (6) Alcohol abuse: Status: Acute Assessment and plan: Drinks every day - drinks Vodka - states she does not tell the truth about how much she drinks CIWA Benzo protocol (7) DVT prophylaxis: Status: Acute Assessment and plan: TEDS (8) Discharge planning issues: Status: Acute Assessment and plan: Home when stable w oral abx and oral steroids History of Present Illness History of Present Illness Chief Complaint: Difficulty breathing Narrative: This is a 62 year old female patient with a past medical history of asthma and COPD who is a chronic tobacco smoker who presented to the [facility] ED for shortness of breath for the past week, worse today.? Patient stated she was seen at [facility] this week for her symptoms and placed on oral prednisone which she finished today.? Patient denied any relief with oral steroids.? Patient statef her cough was worse at the start of her illness last week ago but states it is still present and she is still coughing up yellow-green sputum.? She denied any hemoptysis.? She stated she takes her Symbicort twice daily and ProAir inhaler as needed.? She denied any known fever, chest pain, vomiting or leg swelling.? She denied any recent antibiotics.? She stated she has never been on home oxygen.? She denied any history of intubations. She drinks vodka everyday. She stated she has refrained from smoking for one week. She was given steroids and nebulizers in the ED and was not able to get her SPO2 above 90% on 1 lpm. She is placed on observation status for IV abx, steroids, and nebulizers. Review of Systems All systems reviewed & are unremarkable except as noted in HPI and below PFSH All Active Problems (Updated 09/13/22 @ 16:12 by Charlotte Patel NP) Elevated BP without diagnosis of hypertension (Acute) Acute exacerbation of COPD with asthma (Acute) Smoker (Acute) Anxiety (Acute) Improved on buspirone. Will increase buspirone to 10 mg twice a day to achieve results. Hyperlipidemia (Acute) Asthma (Chronic) Alcohol abuse (Acute) DVT prophylaxis (Acute) Discharge planning issues (Acute) Medical History (Updated 09/13/22 @ 16:12 by Charlotte Patel NP) Cigarette smoker Annual lung cancer screening. Negative 03/12 Major depressive disorder with current active episode Telogen effluvium Vitamin D deficiency Surgical History Endometrial polyp s/p D+C History of arthroscopic knee surgery History of bilateral ligation of fallopian tubes Family History Mother , AGE 65 ALS (amyotrophic lateral sclerosis) Father , AGE 35 Suicide Sister No problems noted. Paternal Grandmother Heart disease Lupus Daughter Depression Anxiety Daughter No problems noted. Daughter No problems noted. Social History Smoking/Tobacco Use Status: Current every day Tobacco Type: cigarettes Smoking packs per day: 1 Smoking cigarettes per day: 20.0 Years smoked: 41 Smoking pack-years: 41.00 Tobacco: How many years used: 41 Quit status: considering quitting Second Hand Exposure: Yes Counseling given: provider counseling, support medications and counseling >3 minutes Smoking risk assessment performed?: Yes Alcohol Intake: current Alcohol Intake frequency: a few times a week Alcohol type: hard liquor Counseling provided: provider counseling Drug use: Daily Substance use type: marijuana Caregiver/Support person: No Household members: spouse Housing: house Number of Children: 3 number of grandchildren: 4 Communication Needs: None Education Level: high school Do you need help understanding health information?: Never current occupation: Owns [employer] business, works in a [employer]. Pets and animals: Yes Pets and animals: dog(s) Sexually active: Yes Do you think of yourself as: straight/heterosexual Current gender identity: female What is your relationship status?: How often do you talk on the phone with friends or family?: three or more times per week How often do you get together with friends or relatives?: once per week How often do you attend pentecostalism or church services?: 1-3 times per year Do you belong to any clubs or organized social groups?: no Panel score (0-1 are the most socially isolated patients): 2 Duration: < 15 minutes/day Genevieve/Oriental Orthodox: Evangelical Special genevieve needs: No Seatbelt use: always Helmet use: Yes Helmet use: sometimes Drive intox or ride w/intox mechanic welder truck driver: No Do you feel safe at home: Yes Do you feel safe in your relationship?: Yes History History 4 Para 4 Hx # Term Pregnancies Multiple births Hx # Pregnancies Ectopic pregnancies AB induced Hx Number of Living Children 3 AB spontaneous Meds Allergies and Home Medications Allergies Allergy/AdvReac Type Severity Reaction Status Date / Time No Known Drug Allergies Allergy Verified 09/08/22 14:35 Home Medications Medication Instructions Recorded Confirmed Type ibuprofen 100 mg tablet 200 mg PO Q4H PRN 03/14/14 09/12/22 History multivit with 1 ea PO DAILY 03/09/17 09/08/22 History vgppowmo-gfug-GN-lutein 8 mg iron-400 mcg-300 mcg tablet (Centrum Silver Women) cholecalciferol (vitamin D3) 125 5,000 unit PO DAILY #90 caps 02/08/19 09/08/22 Rx mcg (5,000 unit) capsule benzonatate 100 mg capsule 100 mg PO TID PRN cough #20 caps 03/27/22 09/08/22 Rx budesonide-formoterol HFA 160 2 puff inhalation BID #3 ea 03/27/22 09/08/22 Rx mcg-4.5 mcg/actuation aerosol inhaler (Symbicort) budesonide-formoterol HFA 80 2 puff inhalation BID #10.2 grams 04/13/22 09/12/22 Rx mcg-4.5 mcg/actuation aerosol inhaler (Symbicort) bupropion HCl 150 mg 24 hr tablet, 150 mg PO QAM #90 tabs 04/13/22 09/12/22 Rx extended release albuterol sulfate 90 mcg/actuation 2 puff inhalation Q6H PRN 09/08/22 09/08/22 Rx aerosol inhaler (Ventolin HFA) shortness of breath or wheezing #8.5 grams prednisone 20 mg tablet 40 mg PO DAILY 5 days #10 tabs 09/08/22 09/08/22 Rx Exam Const General: cooperative, healthy appearing and no acute distress [facility] Head: normal to inspection Ears: hearing grossly normal bilaterally and external ears normal Face and sinus: normal facial exam Throat: posterior oropharynx normal Eyes General: appearance normal, both eyes and all related structures Pupils: PERRL EOM: EOM intact bilaterally Neck Neck: normal visual inspection and No submandibular swelling Lymphatic: no lymphadenopathy noted Chest Chest: normal inspection of the chest and no tenderness Resp Effort & Inspection: not able to speak in complete sentences (3 word dyspnea on arrival to the floor), cough, labored, pursed lip breathing, tachypneic and prolonged expiratory phase Auscultation: bronchovesicular breath sounds (not moving a lot of air) bilaterally and diminished lung sounds bilaterally throughout Cardio Rate: tachycardic Rhythm: regular rhythm GI Inspection: normal to inspection and obesity Palpation: soft, not firm, not rigid and nontender Auscultation: hypoactive bowel sounds Back/Spine/Pelvis Thoracic/Lumbar Spine: thoracic and lumbar spine normal to inspection Pelvis: no pain with anterior-posterior compression Skin General skin exam: no rashes or lesions noted Neuro General: patient alert, patient awake and patient oriented x3 Cognition: normal cognition Speech: speech normal Motor: muscle tone normal throughout Sensory Exam: no sensory deficits noted Extrem General: normal to inspection, full ROM, capillary refill normal, no calf tenderness bilaterally and no edema Psych Appearance: grossly normal Mental Status: mental status grossly normal Speech and Movement: speech and movement normal Affect: normal affect Results Labs 09/12/22 13:15 09/12/22 13:15 Labs: Laboratory Results - last 24 hr 09/12/22 09/12/22 09/12/22 13:15 13:15 13:15 WBC 10.76 RBC 5.10 Hgb 16.3 H Hct 48.2 H MCV 95 MCH 32.0 MCHC 33.8 RDW 13.2 Plt Count 238 MPV 10.1 Immature Gran % 0.4 Neutrophils % 66.0 Lymphocytes % 25.7 Monocytes % 7.1 Eosinophils % 0.5 Basophils % 0.3 Nucleated RBC % 0.0 Absolute Neutrophils 7.11 H Absolute Lymphocytes 2.77 Absolute Monocytes 0.76 Absolute Eosinophils 0.05 Absolute Basophils 0.03 D-Dimer 373 ABG Sample Site ABG pH ABG pCO2 ABG pO2 ABG HCO3 ABG Total CO2 ABG O2 Saturation ABG Base Excess Oxygen Liter Flow FiO2 Sodium 137 Potassium 3.6 Chloride 103 Carbon Dioxide 26.4 Anion Gap 7.6 BUN 21 H Creatinine 0.7 Est GFR (CKD-EPI 2020) 98.95 Glucose 139 H Calcium 9.2 Magnesium 1.6 L Total Bilirubin 0.5 AST 33 ALT 61 H Alkaline Phosphatase 110 Troponin I < 50 NT-Pro-B Natriuret Pep 134 Total Protein 7.4 Albumin 3.5 COVID-19 Source SARS-CoV-2 (PCR) Influenza Type A (PCR) Influenza Type B (PCR) RSV (PCR) 09/12/22 09/12/22 09/12/22 13:15 13:27 14:56 WBC RBC Hgb Hct MCV MCH MCHC RDW Plt Count MPV Immature Gran % Neutrophils % Lymphocytes % Monocytes % Eosinophils % Basophils % Nucleated RBC % Absolute Neutrophils Absolute Lymphocytes Absolute Monocytes Absolute Eosinophils Absolute Basophils D-Dimer ABG Sample Site Left Radial ABG pH 7.41 ABG pCO2 37 ABG pO2 53 L ABG HCO3 24 ABG Total CO2 21 L ABG O2 Saturation 88 L ABG Base Excess -1 Oxygen Liter Flow 0 FiO2 21 Sodium Potassium Chloride Carbon Dioxide Anion Gap BUN Creatinine Est GFR (CKD-EPI 2020) Glucose Calcium Magnesium Total Bilirubin AST ALT Alkaline Phosphatase Troponin I NT-Pro-B Natriuret Pep Cancelled Total Protein Albumin COVID-19 Source Nasopharynx SARS-CoV-2 (PCR) Negative Influenza Type A (PCR) Negative Influenza Type B (PCR) Negative RSV (PCR) Negative Last Vital Signs Temp 36.4 C 09/12/22 12:58 Pulse 103 H 09/12/22 15:30 Resp 11 L 09/12/22 15:30 BP 149/78 H 09/12/22 15:30 Pulse Ox 91 L 09/12/22 15:30 PAWSS Have you Been Recently Intoxicated or Drunk Within the Last 30 days?: No Have you Ever Experienced Previous Episodes of Alcohol Withdrawal?: No Have you ever Experienced Withdrawal Seizures?: No Have you ever Experienced Delirium Tremens(DT)s?: No Have you ever undergone Alcohol Rehabilitation Treatment (i.e, inpt ot outpatient treatment programs)?: No Have you ever Experienced Blackouts?: No Have you ever Combined Alcohol with other Downers within the last 90 days?: No Have you ever Combined Alcohol with any other Substance of Abuse during the last 90 days?: No Positive Blood Alcohol level on Presentation? [PCS.BAL]: No Evidence of Increased Autonomic Activity (i.e. HR>120, tremor, sweating, agitation, nausea)?: No Result: 0 Time Spent Time spent with Patient: 55-74 minutes Time was spent: preparing to see the patient(eg.review tests), obtaining and/or reviewing separately otained hiistory, ordering medications,tests, procedures, referring, communicating with other health patient centered care specialist, indepentently interpreting results, counseling the patient and care coordination
[2022-09-12] MEDS: AZITHROMYCIN 500 MG in Normal Saline 250 ML 250 MG IVPB (16:34)
[2022-09-12 16:37] LABS: Procalcitonin < 0.1 ng/mL
--- NOTE | 2022-09-12 17:21 | NUR.NOTE ---
Nursing Note: as i was transporting patient up to [facility] patients daughter was messing with the iv pump , because it was beeping , quate from her she said she went to nursing school , and that she was a RN , I said quote please dont mess with the pump. i passed on to the nurse she had down here , Rachael the insident.
[2022-09-12] MEDS: Normal Saline Flush 10 ML SYR IVP (18:21)
[2022-09-12] MEDS: cefTRIAXone 2 GM/50 ML BAG IVPB (18:24)
[2022-09-12] MEDS: Ketorolac 30 MG/ML VIAL IVP (19:08)
[2022-09-12 19:26] LABS: Lab Add On Test DONE
[2022-09-12 19:36] LABS: Bilirubin Negative (Negative); Blood Negative (Negative); Clarity Clear (Clear); Glucose Negative (Negative); Ketones Negative (Negative); Leukocyte Esterase Negative (Negative); Nitrite Negative (Negative); Specific Gravity 1.025 (1.005-1.025); Urobilinogen 0.2 mg/dL (Up to 0.2); pH 5.5 (5-8)
[2022-09-12 19:37] LABS: C-Reactive Protein 0.39 mg/dL (0.0-0.3)
[2022-09-12] MEDS: Budesonide/Formoterol 160/4.5 6 GM 60 PUFF INH IH (19:47)
[2022-09-12 19:48] LABS: *AMPHETAMINES SCREEN URINE Negative (Negative); *BARBITURATES SCREEN URINE Negative (Negative); *BENZODIAZEPINES SCREEN URINE Negative (Negative); Cannabinoids THC Positive (Negative); Cocaine Screen,Urine Negative (Negative); METHADONE URINE SCREEN Negative (Negative); OPIATES URINE SCREEN Negative (Negative)
[2022-09-12 19:49] LABS: Tricyclic Antidepressants Negative (Negative)
[2022-09-12] MEDS: guaiFENesin 600 MG TABCR PO (20:49)
[2022-09-12] MEDS: Zolpidem 5 MG TAB PO (21:15)
[2022-09-13] VITALS (14 sets, daily range): BP systolic 122–170; BP diastolic 63–110; PULSE 79–104; RESP 4–24; TEMP 36.2–37.2; O2SAT 86–96
[2022-09-13 06:49] LABS: Abs Immature Grans 0.12 10^3/uL (0.0-0.06); Absolute Basophil Count 0.02 10^3/uL (0.0-0.2); Absolute Lymphocyte Count 1.16 10^3/uL (1.2-3.4); Absolute Monocyte Count 0.79 10^3/uL (0.1-0.8); Basophils % 0.2; HCT 44.8 % (36.0-46.0); HGB 14.8 g/dL (11.2-15.7); Lymphocytes % 9.6; MCH 31.2 pg (27.0-33.0); MCV 94 fL (80-95); MPV 10.2 fL (8.0-11.0); Monocytes % 6.5; Neutrophils % 82.7; Platelet Count 237 10^3/uL (130-400); RBC 4.75 10^6/uL (3.93-5.22); RDW 13.2 % (11.7-14.6); RDW-SD 46.2 fL; WBC 12.12 10^3/uL (4.4-10.8)
[2022-09-13 06:52] LABS: Absolute Neutrophil Count 10.02 10^3/uL (1.2-6.7)
[2022-09-13 07:08] LABS: Anion Gap 6.7 mmol/L (3-11); BUN 22 mg/dL (7-18); CO2 26.3 mmol/L (21.0-32.0); CREATININE 0.7 mg/dL (0.55-1.02); Calcium 9.2 mg/dL (8.5-10.1); Chloride 104 mmol/L (98-107); Estimated GFR 98.95 (mL/min/1.73m2); Glucose 110 mg/dL (74-106); Potassium 4.5 mmol/L (3.5-5.1); Sodium 137 mmol/L (136-145)
[2022-09-13 07:10] LABS: ALT 69 U/L (14-59); AST 33 U/L (15-37); Albumin 3.2 g/dL (3.4-5.0); Alkaline Phosphatase 98 U/L (46-116); Bilirubin, Direct 0.1 mg/dL (0.0-0.2); Bilirubin, Total 0.3 mg/dL (0.2-1.0); PHOSPHORUS 4.3 mg/dL (2.6-4.7); Total Protein 7.1 g/dL (6.4-8.2)
[2022-09-13] MEDS: Budesonide/Formoterol 160/4.5 6 GM 60 PUFF INH IH ×2 (08:07→19:32)
[2022-09-13] MEDS: Albuterol/Ipratropium 3 ML UPD VIAL UPD ×4 (08:08→19:33)
[2022-09-13] MEDS: Folic Acid 1 MG TAB PO (08:30)
[2022-09-13] MEDS: predniSONE 20 MG TAB 40 MG PO (08:30)
[2022-09-13] MEDS: Normal Saline Flush 10 ML SYR IVP (08:30)
[2022-09-13] MEDS: Thiamine 100 MG TAB PO (08:31)
[2022-09-13] MEDS: guaiFENesin 600 MG TABCR PO ×2 (08:33→19:32)
[2022-09-13] MEDS: Multivitamin TAB 1 TAB PO (08:33)
--- NOTE | 2022-09-13 08:41 | INITIAL_ITS ---
- If Service Date Differs Date of service: 09/13/22 Time of Service: 08:41 Care Management Initial Assess REASON FOR HOSPITALIZATION:: Asthma; COPD PAST MEDICAL HISTORY/PAST SURGICAL HISTORY:: Alcohol use disorder (vodka daily), MDD, daily smoker (quit a week ago); cigarettes and marijuana, anxiety with social withdrawal. Medical History (Updated 09/12/22 @ 16:29 by Charlotte Patel NP). Cigarette smoker. Annual lung cancer screening. Negative 03/12. Elevated BP without diagnosis of hypertension. Major depressive disorder with current active episode. Telogen effluvium. Vitamin D deficiency. Surgical History . Endometrial polyp. s/p D+C. History of arthroscopic knee surgery. History of bilateral ligation of fallopian tubes PREVIOUS FUNCTIONAL STATUS/SOCIAL/FAMILY SUPPORTS:: Resides in [place], with , Paul. Independent at baseline in the community. Monies children reside locally including daughter Adrienne who is appointed [employer] and is supportive. CURRENT FUNCTIONAL STATUS:: 2L O2. Up independently. ADVANCE DIRECTIVES:: On file; [place] as agent, Paul as alternate. Has patient been provided with info about the portal/API?: Yes Did the patient sign up for the portal?: Yes CODE STATUS:: Full Code INSURANCE COVERAGE / FINANCIAL ISSUES:: Medicaid CURRENT HOME/COMMUNITY SERVICES/EQUIPMENT:: None, currently. PRIMARY CARE PHYSICIAN:: Jaylin Valdivia POTENTIAL DISCHARGE NEEDS:: Possible new home oxygen; respiratory following. PATIENT/FAMILY EDUCATION NEEDS:: Review of discharge instructions, discuss Ask Me Three. ANTICIPATED BARRIERS TO DISCHARGE:: Respiratory status, home O2 coordination if indicated. TRANSPORTATION:: Via private vehicle with family. PLAN:: Mary Lou remains in the ICU at this time, closely monitored and treated for
[2022-09-13] MEDS: LORazepam 1 MG TAB SL (12:12)
[2022-09-13] MEDS: cefTRIAXone 2 GM/50 ML BAG IVPB (15:02)
[2022-09-13] MEDS: Ibuprofen 600 MG TAB PO (15:02)
--- NOTE | 2022-09-13 15:04 | NUR.NOTE ---
Nursing Note: sumit manuel sketch artist notified of elevated bp with headache. no new orders for pt htn.
--- NOTE | 2022-09-13 16:07 | W.PM.PROGNOT ---
Date of Service Date of service: 09/13/22 Time of Service: 16:08 Assessment and Plan Assessment and plan (1) Acute exacerbation of COPD with asthma: Status: Acute Assessment and plan: Requiring oxygen, is not oxygen dependent at home. Steroids, nebs, abx, oxygen Sputum - moderate gram positive diplococci - ceftriaxone IV IS Acapella (2) Smoker: Status: Acute Assessment and plan: Stop smoking information States she has not smoked in 1 week Offer nicotine replacement - declined states I quit. (3) Anxiety: Status: Acute Assessment and plan: Continue Buspar Lorazepam prn (4) Elevated BP without diagnosis of hypertension: Status: Acute Assessment and plan: BP is high here, however she is not breathing well, is on steroids and is tachycardic. She has had high BP since she arrived. Will have her follow up with PCP regarding starting RADHA v ARB Asked her to take BP and keep a log to bring to PCP appt. She also complained of headache, possibly also causing htn; ibuprofen given and headache improved (5) Hyperlipidemia: Status: Acute Assessment and plan: Diet controlled (6) Alcohol abuse: Status: Acute Assessment and plan: Drinks every day - drinks Vodka - states she does not tell the truth about how much she drinks CIWA - scored 0 since arrival Benzo protocol (7) DVT prophylaxis: Status: Acute Assessment and plan: TEDS (8) Discharge planning issues: Status: Acute Assessment and plan: Pulmonology consult 09/14/2022 Home when stable w oral abx and oral steroids Subjective Subjective Patient reports: no new complaints, tolerating a regular diet, bowel movement, shortness of breath (continues to be short of breath and unable to be without O2) and afebrile; denies diarrhea, nausea or vomiting Interval history since last seen: Mary Lou states she is feeling a little better, although still obviously short of breath with talking Exam Const General: cooperative, healthy appearing and no acute distress HENMT Head: normal to inspection Ears: hearing grossly normal bilaterally and external ears normal Face and sinus: normal facial exam Throat: posterior oropharynx normal Eyes General: appearance normal, both eyes and all related structures Pupils: PERRL EOM: EOM intact bilaterally Neck Neck: normal visual inspection and No submandibular swelling Lymphatic: no lymphadenopathy noted Chest Chest: normal inspection of the chest and no tenderness Resp Effort & Inspection: able to speak in complete sentences (although with obv shortness of breath while speaking,), cough, labored, pursed lip breathing, tachypneic, uses accessory muscles (lifting her shoulders with every breath) and prolonged expiratory phase Auscultation: bronchovesicular breath sounds (not moving a lot of air) bilaterally and diminished lung sounds bilaterally throughout Cardio Rate: tachycardic Rhythm: regular rhythm GI Inspection: normal to inspection and obesity Palpation: soft, not firm, not rigid and nontender Auscultation: hypoactive bowel sounds Back/Spine/Pelvis Thoracic/Lumbar Spine: thoracic and lumbar spine normal to inspection Pelvis: no pain with anterior-posterior compression Skin General skin exam: no rashes or lesions noted Neuro General: patient alert, patient awake and patient oriented x3 Cognition: normal cognition Speech: speech normal Motor: muscle tone normal throughout Sensory Exam: no sensory deficits noted Extrem General: normal to inspection, full ROM, capillary refill normal, no calf tenderness bilaterally and no edema Psych Appearance: grossly normal Mental Status: mental status grossly normal Speech and Movement: speech and movement normal Affect: normal affect Objective Last Vital Signs Temp 37.2 C 09/13/22 14:40 Pulse 94 H 09/13/22 14:40 Resp 18 09/13/22 14:40 BP 154/100 H 09/13/22 14:40 Pulse Ox 92 09/13/22 14:40 Laboratory Results - last 24 hr 09/12/22 09/12/22 09/12/22 13:15 13:15 13:43 WBC RBC Hgb Hct MCV MCH MCHC RDW Plt Count MPV Immature Gran % Neutrophils % Lymphocytes % Monocytes % Eosinophils % Basophils % Nucleated RBC % Absolute Neutrophils Absolute Lymphocytes Absolute Monocytes Absolute Eosinophils Absolute Basophils Sodium Potassium Chloride Carbon Dioxide Anion Gap BUN Creatinine Est GFR (CKD-EPI 2020) Glucose Calcium Phosphorus Magnesium Total Bilirubin Conjugated Bilirubin AST ALT Alkaline Phosphatase C-Reactive Protein 0.39 H Total Protein Albumin Procalcitonin < 0.1 Urine Color Urine Clarity Urine pH Ur Specific [place] Urine Protein Urine Ketones Urine Blood Urine Nitrite Urine Bilirubin Urine Urobilinogen Ur Leukocyte Esterase Urine Glucose Urine Opiates Screen Urine Methadone Screen Ur Barbiturates Screen Ur Tricyclics Screen Ur Amphetamines Screen U Benzodiazepines Scrn Urine Cocaine Screen Ur THC Screen Add-On Test Request DONE 09/12/22 09/12/22 09/13/22 17:42 17:42 06:18 WBC RBC Hgb Hct MCV MCH MCHC RDW Plt Count MPV Immature Gran % Neutrophils % Lymphocytes % Monocytes % Eosinophils % Basophils % Nucleated RBC % Absolute Neutrophils Absolute Lymphocytes Absolute Monocytes Absolute Eosinophils Absolute Basophils Sodium 137 Potassium 4.5 Chloride 104 Carbon Dioxide 26.3 Anion Gap 6.7 BUN 22 H Creatinine 0.7 Est GFR (CKD-EPI 2020) 98.95 Glucose 110 H Calcium 9.2 Phosphorus Magnesium 2.0 Total Bilirubin Conjugated Bilirubin AST ALT Alkaline Phosphatase C-Reactive Protein Total Protein Albumin Procalcitonin Urine Color Yellow Urine Clarity Clear Urine pH 5.5 Ur Specific [place] 1.025 Urine Protein Negative Urine Ketones Negative Urine Blood Negative Urine Nitrite Negative Urine Bilirubin Negative Urine Urobilinogen 0.2 Ur Leukocyte Esterase Negative Urine Glucose Negative Urine Opiates Screen Negative Urine Methadone Screen Negative Ur Barbiturates Screen Negative Ur Tricyclics Screen Negative Ur Amphetamines Screen Negative U Benzodiazepines Scrn Negative Urine Cocaine Screen Negative Ur THC Screen Positive A Add-On Test Request 09/13/22 09/13/22 06:18 06:18 WBC 12.12 H RBC 4.75 Hgb 14.8 Hct 44.8 MCV 94 MCH 31.2 MCHC 33.0 RDW 13.2 Plt Count 237 MPV 10.2 Immature Gran % 1.0 Neutrophils % 82.7 Lymphocytes % 9.6 Monocytes % 6.5 Eosinophils % 0.0 Basophils % 0.2 Nucleated RBC % 0.0 Absolute Neutrophils 10.02 H Absolute Lymphocytes 1.16 L Absolute Monocytes 0.79 Absolute Eosinophils 0.00 Absolute Basophils 0.02 Sodium Potassium Chloride Carbon Dioxide Anion Gap BUN Creatinine Est GFR (CKD-EPI 2020) Glucose Calcium Phosphorus 4.3 Magnesium Total Bilirubin 0.3 Conjugated Bilirubin 0.1 AST 33 ALT 69 H Alkaline Phosphatase 98 C-Reactive Protein Total Protein 7.1 Albumin 3.2 L Procalcitonin Urine Color Urine Clarity Urine pH Ur Specific [place] Urine Protein Urine Ketones Urine Blood Urine Nitrite Urine Bilirubin Urine Urobilinogen Ur Leukocyte Esterase Urine Glucose Urine Opiates Screen Urine Methadone Screen Ur Barbiturates Screen Ur Tricyclics Screen Ur Amphetamines Screen U Benzodiazepines Scrn Urine Cocaine Screen Ur THC Screen Add-On Test Request PAWSS Have you Been Recently Intoxicated or Drunk Within the Last 30 days?: No Have you Ever Experienced Previous Episodes of Alcohol Withdrawal?: No Have you ever Experienced Withdrawal Seizures?: No Have you ever Experienced Delirium Tremens(DT)s?: No Have you ever undergone Alcohol Rehabilitation Treatment (i.e, inpt ot outpatient treatment programs)?: No Have you ever Experienced Blackouts?: No Have you ever Combined Alcohol with other Downers within the last 90 days?: No Have you ever Combined Alcohol with any other Substance of Abuse during the last 90 days?: No Positive Blood Alcohol level on Presentation? [PCS.BAL]: No Evidence of Increased Autonomic Activity (i.e. HR>120, tremor, sweating, agitation, nausea)?: No Result: 0 Time Spent with Patient Time Spent with Patient: 35-49 minutes Time was spent: preparing to see the patient(eg.review tests), ordering medications,tests, procedures, referring, communicating with other health pet care technician, indepentently interpreting results, counseling the patient and care coordination
[2022-09-13] MEDS: AZITHROMYCIN 500 MG in Normal Saline 250 ML 250 MG IVPB (17:14)
[2022-09-13 21:10] LABS: Legionella Ag Detection Urine Negative (Negative)
[2022-09-13] MEDS: Zolpidem 5 MG TAB PO ×2 (21:21→22:08)
[2022-09-13] MEDS: Famotidine 20 MG TAB PO (21:21)
[2022-09-14] VITALS (11 sets, daily range): BP systolic 107–158; BP diastolic 65–103; PULSE 77–107; RESP 4–22; TEMP 36.1–36.7; O2SAT 90–95
[2022-09-14 07:12] LABS: Abs Immature Grans 0.17 10^3/uL (0.0-0.06); Absolute Eosinophil Count 0.02 10^3/uL (0.0-0.7); Absolute Lymphocyte Count 2.99 10^3/uL (1.2-3.4); Absolute Monocyte Count 0.73 10^3/uL (0.1-0.8); Basophils % 0.4; Eosinophils % 0.2; HCT 45.1 % (36.0-46.0); HGB 14.8 g/dL (11.2-15.7); Immature Grans % 1.5; Lymphocytes % 26.3; MCH 31.2 pg (27.0-33.0); MCHC 32.8 % (32.0-36.0); MCV 95 fL (80-95); MPV 10.3 fL (8.0-11.0); Monocytes % 6.4; Neutrophils % 65.2; Platelet Count 252 10^3/uL (130-400); RBC 4.75 10^6/uL (3.93-5.22); RDW 13.3 % (11.7-14.6); RDW-SD 47.1 fL; WBC 11.35 10^3/uL (4.4-10.8)
--- NOTE | 2022-09-14 07:16 | PUCON_ITS ---
General Date Of Service Date of service: 09/14/22 Time of Service: 07:16 Reason for Consult: COPD Exacerbation Assessment and Plan Assessment and plan (1) Acute exacerbation of COPD with asthma: Status: Acute (2) Pneumonia: Status: Acute (3) Respiratory failure with hypoxia: Status: Acute (4) Hx of recurrent pneumonia: Status: Acute (5) Smoker: Status: Acute Assessment and plan: This is a 62 yo with prior diagnosis of asthma, with likely COPD (although no PFT's completed) as well as recurrent lung infections and exacerbations who is admitted for pneumonia and COPD exacerbation. She was on Symbicort 160 and as outpatient. I think we should lower her ICS dose given the recurrent infections and she should be on LAMA therapy so have ordered Spiriva. We discussed her smoking in depth and she is motivated to quit. I will order her a nicotrol inhaler today as she is noticing some cravings today (feeling better) and will also try Chantix as an outpatient again. I will order the starter pack but for her maintenance dose, I will have her do 1mg daily instead of bid to try and limit the side effects she previously had. The CXR is show bibasilar infiltrate, that may just simply be atelectasis given normal sputum culture and a negative procalcitonin, but it is reasonable to continue antibiotics given the clinical suspicion. I will see her as an outpatient to continue her pulmonary care. Asthma-COPD Overlap Syndrome with exacerbation - decrease Symbicort 160 to 80 - add Spiriva - continue prednisone 40mg daily for 5 days, then 30mg for 3 days, 20mg for 3 days, 10mg for 3 days, 5mg for 3 days - can D/C with azithromycin monotherapy for total duration 5 days - prn nebs - DARBY trial enrollement - will follow up with her as an outpatient Pneumonia and recurrent infections - have reduced Symbicort from 160 to 80 - immunoglobulin measurement Smoking - nicitrol inhaler - Chantix ordered to her pharmacy with reduced maintenance dosing History of Present Illness Narrative: This is a 62 yo who has a documented history of asthma, but likely does also have COPD admitted for a COPD exacerbation. She has not had PFT's previously. As an outpatient she is on Symbicort 160 alone. Her labs never show elevated eosinophils. It does appear as though she has had recurrent exacerbations as well as several lung infections (pneumonia, bronchitis). She has taken part in LDCT lung cancer screening which does show significant emphysema as well as some sars (likely from prior infection) as well as small airways disease. Her sputum culture returned normal pat, although she is receiving treatment for CAP with ceftriaxone and azithromycin. An ABG on admission did not find CO2 retention. Today she is feeling better than previously. She states he is starting to cough up mucus, whereas previously her lung just felt tight like nothing was able to move around. She did stop smoking a couple days prior to admission. She wants to quit. She was intolerant to gum and patches. She did have some success with Chantix, however it made her have very lucid dreams that were exhausting for her. She is on room air. Review of Systems All systems reviewed & are unremarkable except as noted in HPI and below PFSH All Active Problems (Updated 09/14/22 @ 07:25 by Sury Miller MD) Hx of recurrent pneumonia (Acute) Respiratory failure with hypoxia (Acute) Pneumonia (Acute) Elevated BP without diagnosis of hypertension (Acute) Acute exacerbation of COPD with asthma (Acute) Smoker (Acute) Anxiety (Acute) Improved on buspirone. Will increase buspirone to 10 mg twice a day to achieve results. Hyperlipidemia (Acute) Asthma (Chronic) Alcohol abuse (Acute) DVT prophylaxis (Acute) Discharge planning issues (Acute) Medical History (Updated 09/14/22 @ 07:25 by Sury Miller MD) Cigarette smoker Annual lung cancer screening. Negative 03/12 Major depressive disorder with current active episode Telogen effluvium Vitamin D deficiency Surgical History Endometrial polyp s/p D+C History of arthroscopic knee surgery History of bilateral ligation of fallopian tubes Family History Mother , AGE 65 ALS (amyotrophic lateral sclerosis) Father , AGE 35 Suicide Sister No problems noted. Paternal Grandmother Heart disease Lupus Daughter Depression Anxiety Daughter No problems noted. Daughter No problems noted. Social History Smoking/Tobacco Use Status: Current every day Tobacco Type: cigarettes Smoking packs per day: 1 Smoking cigarettes per day: 20.0 Years smoked: 41 Smoking pack- years: 41.00 Tobacco: How many years used: 41 Quit status: considering quitting Second Hand Exposure: Yes Counseling given: provider counseling, support medications and counseling >3 minutes Smoking risk assessment performed?: Yes Alcohol Intake: current Alcohol Intake frequency: a few times a week Alcohol type: hard liquor Counseling provided: provider counseling Drug use: Daily Substance use type: marijuana Caregiver/Support person: No Household members: spouse Housing: house Number of Children: 3 number of grandchildren: 4 Communication Needs: None Education Level: high school Do you need help understanding health information?: Never current occupation: Owns [employer], works in a [employer]. Pets and animals: Yes Pets and animals: dog(s) Sexually active: Yes Do you think of yourself as: straight/heterosexual Current gender identity: female What is your relationship status?: How often do you talk on the phone with friends or family?: three or more times per week How often do you get together with friends or relatives?: once per week How often do you attend alevism or episcopal services?: 1-3 times per year Do you belong to any clubs or organized social groups?: no Panel score (0-1 are the most socially isolated patients): 2 Duration: < 15 minutes/day Genevieve/Confucianism: Yarsani Special genevieve needs: No Seatbelt use: always Helmet use: Yes Helmet use: sometimes Drive intox 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 Do you feel safe at home: Yes Do you feel safe in your relationship?: Yes History History 4 Para 4 Hx # Term Pregnancies Multiple births Hx # Pregnancies Ectopic pregnancies AB induced Hx Number of Living Children 3 AB spontaneous Visit Medication and Allergies Active Medications Generic Name Dose Route Start Last Admin Trade Name Freq PRN Reason Stop Dose Admin Albuterol Sulfate 5 mg 09/12/22 16:14 Albuterol 2.5 Mg/3 Ml Inh Soln Vial UPD Q2H PRN PRN Albuterol/Ipratropium 3 ml 09/12/22 20:00 09/13/22 19:33 Albuterol/Ipratropium 3 Ml Upd Vial UPD 3 ml QID ANITA Administration Benzonatate 100 mg 09/12/22 16:21 Benzonatate 100 Mg Cap PO TID PRN PRN cough Budesonide/Formoterol Fumarate 2 puff 09/12/22 20:00 09/13/22 19:32 Budesonide/Formoterol 160/4.5 6 Gm 60 Puff Inh IH 2 puffs BID ANITA Administration Bupropion HCl 150 mg 09/13/22 08:30 09/13/22 08:33 Bupropion-Xl 150 Mg Tabcr PO Not Given QAM ANITA Device 1 each 09/12/22 17:00 Inhaler, Assist Device DIRECTED [facility] Dimethicone/Zinc Oxide 0 gm 09/12/22 16:04 Griffin Protect Cream 142 Gm Tube TP PRN PRN Famotidine 20 mg 09/12/22 22:00 09/13/22 21:21 Famotidine 20 Mg Tab PO 20 mg HS ANITA Administration Folic Acid 1 mg 09/13/22 08:30 09/13/22 08:30 Folic Acid 1 Mg Tab PO 09/19/22 08:31 1 mg QAM ANITA Administration Guaifenesin 600 mg 09/12/22 20:00 09/13/22 19:32 Guaifenesin 600 Mg Tabcr PO 600 mg BID ANITA Administration Ceftriaxone Sodium/Dextrose 2 gm in 50 mls @ 100 mls/hr 09/13/22 16:00 09/13/22 15:02 Rocephin IVPB 100 mls/hr Q24H ANITA Administration Azithromycin 500 mg/ Sodium 250 mls @ 250 mls/hr 09/13/22 18:00 09/13/22 17:14 Chloride IVPB 250 mls/hr Q24H ANITA Administration IV Miscellaneous Supplies 1 each 09/12/22 13:30 Iv Access IV DIRECTED [facility] Ibuprofen 600 mg 09/12/22 18:51 09/13/22 15:02 Ibuprofen 600 Mg Tab PO 600 mg QID PRN PRN Administration Lorazepam 0 mg 09/12/22 19:10 Lorazepam 1 Mg Tab PO/SL DIRECTED PRN Multivitamins 1 tab 09/13/22 08:30 09/13/22 08:33 Multivitamin Tab PO 09/19/22 08:31 1 tab QAM ANITA Administration Prednisone 40 mg 09/13/22 08:30 09/13/22 08:30 Prednisone 20 Mg Tab PO 40 mg DAILY ANITA Administration Sodium Chloride 0 ml 09/12/22 13:22 09/13/22 08:30 Normal Saline Flush 10 Ml Syr IVP 10 ml PRN PRN Administration Thiamine HCl 100 mg 09/13/22 08:30 09/13/22 08:31 Thiamine 100 Mg Tab PO 09/19/22 08:31 100 mg QAM ANITA Administration Zolpidem Tartrate 5 mg 09/12/22 22:00 09/13/22 22:08 Zolpidem 5 Mg Tab PO 5 mg HS ANITA Administration Allergies No Known Drug Allergies Allergy (Verified 09/08/22 14:35) Exam Narrative Exam Narrative: Gen: NAD, normal respiratory effort, well-nourished HENT: PERRL Chest: No respiratory distress, normal appearance of chest, clear to auscultation bilaterally, bilateral expiratory wheeze diffusely Heart: regular rate and rhythym, no murmurs, rubs or gallops Abdomen: Non-distended, soft, non tender Extremities: No clubbing, edema, cyanosis, rashes Neuro: AAOx3 , non focal Psych: cooperative, appropriate mental affect Results Last Vital Signs Temp 36.4 C L 09/14/22 03:03 Pulse 77 09/14/22 03:03 Resp 20 09/14/22 03:03 BP 138/74 09/14/22 03:03 Pulse Ox 92 09/14/22 03:03 Labs 09/13/22 06:18 09/13/22 06:18 Imaging Chest x-ray: report reviewed and image reviewed
[2022-09-14 07:19] LABS: Absolute Basophil Count 0.05 10^3/uL (0.0-0.2)
[2022-09-14 07:28] LABS: Anion Gap 6.5 mmol/L (3-11); BUN 20 mg/dL (7-18); CO2 28.5 mmol/L (21.0-32.0); CREATININE 0.8 mg/dL (0.55-1.02); Calcium 9.2 mg/dL (8.5-10.1); Chloride 105 mmol/L (98-107); Glucose 85 mg/dL (74-106); Magnesium 1.7 mg/dL (1.8-2.4); Potassium 4.2 mmol/L (3.5-5.1); Sodium 140 mmol/L (136-145)
[2022-09-14] MEDS: Budesonide/Formoterol 80/4.5 6.9 GM 60 PUFF INH IH (08:09)
[2022-09-14] MEDS: Tiotropium Bromide-Respimat 10 PUFF INH 2 PUFF IH (08:10)
[2022-09-14] MEDS: Albuterol/Ipratropium 3 ML UPD VIAL UPD ×2 (08:10→13:20)
[2022-09-14] MEDS: Folic Acid 1 MG TAB PO (08:35)
[2022-09-14] MEDS: guaiFENesin 600 MG TABCR PO (08:35)
[2022-09-14] MEDS: predniSONE 20 MG TAB 40 MG PO (08:36)
[2022-09-14] MEDS: Multivitamin TAB 1 TAB PO (08:36)
[2022-09-14] MEDS: Thiamine 100 MG TAB PO (08:36)
[2022-09-14] MEDS: buPROPion-XL 150 MG TABCR PO (08:36)
[2022-09-14] MEDS: MAGNESIUM SULFATE 2 GM/50 ML BAG IVPB (08:37)
[2022-09-14] MEDS: Normal Saline Flush 10 ML SYR IVP (08:37)
--- NOTE | 2022-09-14 12:27 | W.PM.DS.N ---
Date of service: 09/14/22 Time of Service: 12:28 DS: Diagnosis Discharge Diagnosis (1) Acute exacerbation of COPD with asthma: Status: Acute (2) Pneumonia: Status: Acute (3) Respiratory failure with hypoxia: Status: Acute (4) Hx of recurrent pneumonia: Status: Acute (5) Smoker: Status: Acute Discharge Plan Disposition Patient Disposition: Home Condition: Improving Discharge Details Reason For Visit: Asthma; COPD Admit Date/Time: 09/12/22 16:04 Admit Provider: Katie Theodore Attending Provider: Katie Theodore Primary Care Provider: Jaylin Valdivia Hospital Course Hospital Course: This is a 62 year old female patient with a past medical history of asthma and COPD who is a chronic tobacco smoker who on 09/12/2022 presented to the [facility] ED for worsening shortness of breath for one week.? Patient stated she was seen at [facility] this week for her symptoms and placed on oral prednisone which she finished on the day of admission.? Patient denied any relief with oral steroids.? Patient stated her cough was worse at the start of her illness last week but stated it was still present and she was still coughing up yellow-green sputum.? She denied any hemoptysis.? She stated she takes her Symbicort twice daily and ProAir inhaler as needed.? She denied any known fever, chest pain, vomiting or leg swelling.? She denied any recent antibiotics.? She stated she has never been on home oxygen.? She denied any history of intubations. She drinks vodka everyday. She stated she had refrained from smoking for one week.? She was given steroids and nebulizers in the ED and was not able to get her SPO2 above 90% on 1 lpm.? She was placed on observation status for IV abx, steroids, and nebulizers.?She was seen by pulmonology.? She was prescribed Symbicort 80, Spiriva, Chantix and nicotine inhalers.? She had tried Chantix in the past and had some side effects of lucid dreams, therefore the dose was decreased to 1 mg daily.? She finished a three day course of Azithromycin 500 mg daily for pneumonia.? Immunoglobulin measurement labs are pending. She was able to walk the unit without needing oxygen.? She was discharged to home, stable, without oxygen requirement with planned follow up with pulmonology.? She was told how important it is to quit smoking.? She said she understood. discussed with Dr Theodore Home Meds and New Rx's Prescriptions: New prednisone 10 mg tablet See Taper PO DIRECTED Qty: 40 0RF Taper: Prednisone 10mg taper 40 mg Daily for 5 Days and 0 Hour 30 mg Daily for 3 Days and 0 Hour 20 mg Daily for 3 Days and 0 Hour 10 mg Daily for 3 Days and 0 Hour 5 mg Daily for 3 Days and 0 Hour Rx Instructions: see taper instructions nicotine 10 mg cartridge 1 inh inhalation 12XD PRNQty: 168 0RF Continued cholecalciferol (vitamin D3) 5,000 unit capsule 5,000 unit PO DAILY Qty: 90 3RF benzonatate 100 mg capsule 100 mg PO TID PRN (Reason: cough) Qty: 20 0RF Rx Instructions: May take 1 capsule every 8 hours as needed for cough albuterol sulfate [Ventolin HFA] 90 mcg/actuation HFA aerosol inhaler 2 puff inhalation Q6H PRN (Reason: shortness of breath or wheezing) Qty: 8.5 5RF bupropion HCl 150 mg tablet extended release 24 hr 150 mg PO QAM Qty: 90 3RF Centrum Silver Women 1 EACH tablet 1 ea PO DAILY varenicline 0.5 mg (11)- 1 mg (42) tablets,dose pack See Rx Instructions PO PER PKG DIR Qty: 53 0RF Rx Instructions: PO PER PKG DIR varenicline 1 mg tablet 1 mg PO DAILY Qty: 56 4RF budesonide-formoterol [Symbicort] 80-4.5 mcg/actuation HFA aerosol inhaler 2 puff inhalation BID Qty: 10.2 3RF Spiriva Respimat 2.5 mcg/actuation mist 2 puff inhalation DAILY Qty: 4 3RF Discontinued prednisone 20 mg tablet 40 mg PO DAILY 5 Days Qty: 10 0RF Rx Instructions: 2 tablets by mouth once a day for 5 days ibuprofen 100 MG tablet 200 mg PO Q4H PRN Patient Comments: 03-09-17 pt reports that she takes this med PRN. hb Discharge Instructions Instructions: Bupropion (By mouth), Tiotropium (By breathing), Varenicline (By mouth), Budesonide/Formoterol (By breathing), Asthma (DC), How to Stop Smoking (DC), COPD (Chronic Obstructive Pulmonary Disease) (DC) Additional Instructions: Stop smoking. Start Varenicline (Chantix) per instructions on label. Use nicotine inhaler as needed. Stand Alone Forms: Nursing Discharge Form Referrals: Sury Miller MD [ [facility] STAFF PHYSICIAN] - 11/06/22 10:00 am () Jaylin Valdivia MD [Primary Care Provider] - 09/21/22 11:40 am Activity:: Activity as Tolerated Equipment/Supplies:: No Equipment Needed Diet:: As Tolerated Discharge Orders Discharge Orders: Discharge Order (Routine); Ordered 09/14/22 Ordered By: Charlotte Patel DS: Summary Time Spent with Patient providing and/or coordinating discharge services: Greater than 30 minutes Status at Discharge Functional status at discharge: independent ambulation Overall status at discharge: patient is back to baseline Mental Status: mental status grossly normal Speech and Movement: speech and movement normal Mood: congruent mood Affect: normal affect Exam Narrative Exam Narrative: Awake, alert, sitting on the side of the bed, conversant, pleasant, able to speak in full sentences, no oxygen on (or needed). Const General: cooperative, healthy appearing and no acute distress HENMT Head: normal to inspection Ears: hearing grossly normal bilaterally and external ears normal Face and sinus: normal facial exam Throat: posterior oropharynx normal Eyes General: appearance normal, both eyes and all related structures Pupils: PERRL EOM: EOM intact bilaterally Neck Neck: normal visual inspection and No submandibular swelling Lymphatic: no lymphadenopathy noted Chest Chest: normal inspection of the chest and no tenderness Resp Effort & Inspection: able to speak in complete sentences, cough, not labored, no nasal flaring, pursed lip breathing and prolonged expiratory phase Auscultation: bronchovesicular breath sounds (not moving a lot of air) bilaterally and diminished lung sounds bilaterally throughout Cardio Rate: tachycardic Rhythm: regular rhythm GI Inspection: normal to inspection and obesity Palpation: soft, not firm, not rigid and nontender Auscultation: hypoactive bowel sounds Back/Spine/Pelvis Thoracic/Lumbar Spine: thoracic and lumbar spine normal to inspection Pelvis: no pain with anterior-posterior compression Skin General skin exam: no rashes or lesions noted Neuro General: patient alert, patient awake and patient oriented x3 Cognition: normal cognition Speech: speech normal Motor: muscle tone normal throughout Sensory Exam: no sensory deficits noted Extrem General: normal to inspection, full ROM, capillary refill normal, no calf tenderness bilaterally and no edema Psych Appearance: grossly normal Mental Status: mental status grossly normal Speech and Movement: speech and movement normal Mood: congruent mood Affect: normal affect DS: Data Vitals/I&O Vitals and I&O: Vital Signs Temperature 36.7 C 09/14/22 10:54 Temperature Source Tympanic 09/14/22 10:54 Pulse 82 09/14/22 10:54 Pulse Rhythm Regular 09/14/22 10:13 Pulse 103 H 09/12/22 16:31 Respiratory Rate 16 09/14/22 10:54 Respiratory Effort Labored 09/14/22 10:13 Respiratory Depth Normal 09/14/22 10:13 Respiratory Pattern Normal 09/14/22 10:13 Blood Pressure 158/103 H 09/14/22 10:54 Blood Pressure Mean 93 09/12/22 16:30 Pulse Oximetry 92 09/14/22 10:54 Oxygen Delivery Method Room Air 09/14/22 10:54 Oxygen Flow Rate 0 09/14/22 10:54 Pain Level 0 09/14/22 03:03 Comment BP taken on right lower arm b/c of iv/ RN informed of BP 09/14/22 10:54 Intake & Output 09/13/22 09/14/22 09/14/22 23:59 11:59 23:59 Intake Total 2029 900 / 900 Output Total 2280 / 3180 1400 / 1400 Balance -250 / -1150 -500 / -500 Intake: IV 300 / 300 Oral 2029 600 / 600 Output: Urine 2280 / 3180 1400 / 1400 Other: Urine Color Pale Yellow Urine Appearance Clear Clear Urine Odor None Normal Voiding Methods Toilet Toilet Data Completed and Pending Labs on day of discharge: Labs from last 24 hours 09/14/22 09/14/22 09/14/22 06:20 06:20 06:20 WBC 11.35 H RBC 4.75 Hgb 14.8 Hct 45.1 MCV 95 MCH 31.2 MCHC 32.8 RDW 13.3 Plt Count 252 MPV 10.3 Immature Gran % 1.5 Neutrophils % 65.2 Lymphocytes % 26.3 Monocytes % 6.4 Eosinophils % 0.2 Basophils % 0.4 Nucleated RBC % 0.0 Absolute Neutrophils 7.40 H Absolute Lymphocytes 2.99 Absolute Monocytes 0.73 Absolute Eosinophils 0.02 Absolute Basophils 0.05 Sodium 140 Potassium 4.2 Chloride 105 Carbon Dioxide 28.5 Anion Gap 6.5 BUN 20 H Creatinine 0.8 Est GFR (CKD-EPI 2020) 84.30 Glucose 85 Calcium 9.2 Magnesium 1.7 L IgG Pending IgA Pending IgM Pending IgE Pending Urine Legionella Ag 09/12/22 17:42 WBC RBC Hgb Hct MCV MCH MCHC RDW Plt Count MPV Immature Gran % Neutrophils % Lymphocytes % Monocytes % Eosinophils % Basophils % Nucleated RBC % Absolute Neutrophils Absolute Lymphocytes Absolute Monocytes Absolute Eosinophils Absolute Basophils Sodium Potassium Chloride Carbon Dioxide Anion Gap BUN Creatinine Est GFR (CKD-EPI 2020) Glucose Calcium Magnesium IgG IgA IgM IgE Urine Legionella Ag Negative Preliminary micro results at discharge 09/12/22 17:42 Sputum Culture - Preliminary Sputum Normal [place] PFSH All Active Problems (Updated 09/14/22 @ 07:25 by Sury Miller MD) Hx of recurrent pneumonia (Acute) Respiratory failure with hypoxia (Acute) Pneumonia (Acute) Elevated BP without diagnosis of hypertension (Acute) Acute exacerbation of COPD with asthma (Acute) Smoker (Acute) Anxiety (Acute) Improved on buspirone. Will increase buspirone to 10 mg twice a day to achieve results. Hyperlipidemia (Acute) Asthma (Chronic) Alcohol abuse (Acute) DVT prophylaxis (Acute) Discharge planning issues (Acute) Medical History (Updated 09/14/22 @ 07:25 by Sury Miller MD) Cigarette smoker Annual lung cancer screening. Negative 03/12 Major depressive disorder with current active episode Telogen effluvium Vitamin D deficiency Surgical History Endometrial polyp s/p D+C History of arthroscopic knee surgery History of bilateral ligation of fallopian tubes Family History Mother , AGE 65 ALS (amyotrophic lateral sclerosis) Father , AGE 35 Suicide Sister No problems noted. Paternal Grandmother Heart disease Lupus Daughter Depression Anxiety Daughter No problems noted. Daughter No problems noted. Social History Smoking/Tobacco Use Status: Current every day Tobacco Type: cigarettes Smoking packs per day: 1 Smoking cigarettes per day: 20.0 Years smoked: 41 Smoking pack-years: 41.00 Tobacco: How many years used: 41 Quit status: considering quitting Second Hand Exposure: Yes Counseling given: provider counseling, support medications and counseling >3 minutes Smoking risk assessment performed?: Yes Alcohol Intake: current Alcohol Intake frequency: a few times a week Alcohol type: hard liquor Counseling provided: provider counseling Drug use: Daily Substance use type: marijuana Caregiver/Support person: No Household members: spouse Housing: house Number of Children: 3 number of grandchildren: 4 Communication Needs: None Education Level: high school Do you need help understanding health information?: Never current occupation: Owns [email or web address] business, works in a [employer]. Pets and animals: Yes Pets and animals: dog(s) Sexually active: Yes Do you think of yourself as: straight/heterosexual Current gender identity: female What is your relationship status?: How often do you talk on the phone with friends or family?: three or more times per week How often do you get together with friends or relatives?: once per week How often do you attend cheondoism or hindu services?: 1-3 times per year Do you belong to any clubs or organized social groups?: no Panel score (0-1 are the most socially isolated patients): 2 Duration: < 15 minutes/day Genevieve/Gnosticism: Scientologist Special genevieve needs: No Seatbelt use: always Helmet use: Yes Helmet use: sometimes Drive intox or ride w/intox courtesy car driver: No Do you feel safe at home: Yes Do you feel safe in your relationship?: Yes History History 4 Para 4 Hx # Term Pregnancies Multiple births Hx # Pregnancies Ectopic pregnancies AB induced Hx Number of Living Children 3 AB spontaneous Time Spent with Patient Time Spent with Patient: 45-69 minutes Time was spent: preparing to see the patient(eg.review tests), ordering medications,tests, procedures, referring, communicating with other health day care supervisor, indepentently interpreting results, counseling the patient and care coordination
[2022-09-14] MEDS: Azithromycin 250 MG TAB 500 MG PO (13:00)
[2022-09-14] MEDS: cefTRIAXone 2 GM/50 ML BAG IVPB (16:27)
--- NOTE | 2022-09-14 17:39 | PDOC.CMDIS ---
- If Service Date Differs Date of service: 09/14/22 Time of Service: 17:39 LACE Index Scoring Tool - Questions: Length of Stay (in days): 2 Acuity (Admit via E.D.?): Yes Comorbidities: Chronic Pulmonary Disease E.D. Visits: 1 - Answers: Total Score: 8 Risk of Readmission: Low Risk Care Management Discharge Reason for Hospitalization: Asthma; COPD Discharge Plan: Mary Lou returned home today with no new services. Her daughter will drive her home via private vehicle. She will follow up with her PCP and discharge plan of care. She is happy to be going home. Patient/Family Education Needs: Review discharge instructions and limitations, discussion of self care needs including ask me three.
[2022-09-14 23:31] LABS: Streptococcus Pneumoniae Ag, U Negative (Negative)
[2022-09-15 10:48] LABS: IgA 287 mg/dL (85-499); IgG 850 mg/dL (610-1616); IgM 85 mg/dL (35-242)
[2022-09-15 16:51] LABS: Mycoplasma Pneumoniae PCR Negative; Specimen source sputum
[2022-09-16 09:13] LABS: IgE 176 IU/mL (<158)
== END 2022-09-14 17:15 | disposition home or self-care (01) ==
LOC: ER 16:31 → MS 16:53
PROVIDERS: Nurse Practitioner Family; Student in an Organized Health Care Education/Training Program; Admitting Provider Internal Medicine; Emergency Provider Physician Assistant; PCP Family Medicine; Visit Provider Internal Medicine
DX: J44.0 Chronic obstructive pulmonary disease with (acute) lower respiratory infection (principal); J18.9 Pneumonia, unspecified organism; J44.1 Chronic obstructive pulmonary disease with (acute) exacerbation; F17.210 Nicotine dependence, cigarettes, uncomplicated; E55.9 Vitamin D deficiency, unspecified; E78.5 Hyperlipidemia, unspecified; F41.9 Anxiety disorder, unspecified; R03.0 Elevated blood-pressure reading, without diagnosis of hypertension; F10.10 Alcohol abuse, uncomplicated; J96.01 Acute respiratory failure with hypoxia; Z87.01 Personal history of pneumonia (recurrent)
CPT/HCPCS: 36415; 80048; 80053; 80076; 80307; 82784; 82805; 84145; 87081; 87449; 87637; 93005; 94618; 94640; 96365; 96366; 96367; 96375; 99285; 36600; 71045; 81003; 82785; 83735; 83880; 84100; 84484; 85025; 85379; 86140; 87070; 87205; 87581; 87899; 93010; 94664; 94667; 94760; 99222; 99232; 99239; G0378; J0456; J1885; J2930; J3475; J7512; J7613; J7620

== ENCOUNTER 2022-11-09 02:26 | Outpatient (CLI) | payer MEDICAID, SELFPAY ==
--- NOTE | 2022-11-09 11:02 | DI.RAD_ITS ---
Exam(s) XR CHEST 2V PA LATERAL EXAM: XR CHEST 2V PA LATERAL CLINICAL HISTORY: aspiration bread, had breathing issues, foreign body aspiration, [id number] TECHNIQUE: 2D digital imaging was performed. COMPARISON: CT CT CHEST LUNG CANCER SCREEN from 04/15/2022 CR,XR XR PORTABLE CHEST AP from 09/12/2022 FINDINGS: No visible foreign body. HEART: Normal size. Aorta: Not dilated. PULMONARY VASCULATURE: Normal. LUNGS: Bibasilar scarring. No infiltrate seen. Upper lobe emphysematous changes peer PLEURAL SPACE: No pleural effusion or pneumothorax. BONE:Unremarkable for age. IMPRESSION: Bibasilar scarring. No acute abnormality. DATA REPOSITORY: RADIATION DOSE DELIVERED:
== END 2022-11-09 02:46 ==
LOC: DI 02:26
PROVIDERS: PCP Family Medicine; Visit Provider Student in an Organized Health Care Education/Training Program
DX: T17.820A Food in other parts of respiratory tract causing asphyxiation, initial encounter (principal); J84.89 Other specified interstitial pulmonary diseases; R06.89 Other abnormalities of breathing
CPT/HCPCS: 71046

== ENCOUNTER → 2023-04-20 01:42 | Outpatient (CLI) | payer MEDICAID, SELFPAY ==
--- NOTE | 2023-04-20 08:12 | DI.MAMMO_ITS ---
Exam(s) MAMMO SCREENING EXAM: MAMMO SCREENING CLINICAL HISTORY: screening,z12.39. TECHNIQUE: Bilateral full field digital CC and MLO mammographic images were obtained with 3D tomosyn thesis and utilizing computer aided detection (CAD). COMPARISON: Prior mammograms were reviewed. FINDINGS: No new findings in the right breast. In the left breast on the 3D MLO view there is suggestion of a small oval well-defined nodular densit y located 2 cm behind the nipple, measuring 5 x 3 mm. Not previously present. Requires additional i maging. There are no new spiculated masses nor malignant appearing microcalcification groups. There is no significant architectural distortion nor skin thickening-retraction. IMPRESSION: 1. No radiographic evidence of malignancy in the right breast. 2. Left breast asymmetric density-possible 5 x 3 mm nodule seen on the MLO view. Spot compression ML O view and ultrasound recommended. BI-RADS Category 0 - Assessment Incomplete: Need additional imaging evaluation Breast Density - Category B - Scattered areas of fibroglandular density Breast density Category C or D implies that the patient has dense breast tissue. Dense breast tissue can make it harder to find cancer on a mammogram. Dense breast tissue is also associated with an incr eased risk of breast cancer. This information about the result of the mammogram report was provided to the patient to raise their awareness. Use this report when you speak with the patient about their risks for breast cancer, which includes their family history. At that time, you may recommend additional screening tests (Ultrasoun d or MRI) as these tests may add significant information. A negative radiographic report should not delay biopsy if a dominant or clinically suspicious mass is present. Up to ten percent of cancers are not identified on mammography. A negative report may reinforce clinical impression. Adenosis and dense breasts may obscure an underlying neoplasm. False positive reports average 6 to 10%. Patient will receive a letter notifying them of these results.
--- NOTE | 2023-04-20 11:14 | DI.CTLCSR_ITS ---
Exam(s) CT CHEST LUNG CANCER SCREEN EXAM: CT CHEST LUNG CANCER SCREEN CLINICAL HISTORY: Screening for lung cancer,current smoker, f17.210. TECHNIQUE: Imaging Protocol: Low Dose Technique CONTRAST MATERIAL: None COMPARISON: CT CT CHEST LUNG CANCER SCREEN from 04/15/2022 CR,XR XR PORTABLE CHEST AP from 09/12/2022 CR XR CHEST 2V PA LATERAL from 11/09/2022 FINDINGS: CHEST: LUNGS: Previously present anterior segment right upper lobe infiltrate seen on CT scan of 04/15/2022 has resolved. However, there is now a significant area of ground-glass infiltrate in the lower most aspect of the right upper lobe just above the minor fissure, measuring approximately 2.3 x 2.5 cm, no t previously present 1 year ago. Below this level there is atelectasis or scarring in the right midd le lobe which is unchanged from prior CT of March 2022. In the right lower lobe there is some mil d scarring in the posterior basal segment which is unchanged. No new focal findings in the right low er lobe including the superior segment. No pleural fluid. In the opposite-left lung there is some stable scarring in the lingular segment adjacent to the peric ardiac fat. Just above the left hemidiaphragm there is mild ground-glass infiltrate in the posterior and lateral basal segments of the left lower lobe, not previously present. No pleural fluid. There are no new focal findings in trachea and mainstem bronchi. MEDIASTINUM: There is no obvious new hilar nor mediastinal adenopathy. CARDIAC: Heart size is normal. There is no pericardial effusion.Caliber thoracic aorta is within nor mal limits. OSSEOUS: No significant osseous lesions.No fractures.. IMPRESSION: 1. Compared to the prior chest CT scan of March 2022 there has been resolution of an area of infil trate in the right upper lobe. There is, however, a new area of ground-glass infiltrate in the lower most aspect of the right upper lobe contiguous with the minor fissure, measuring approximately 23 x 25 mm. In the left lung there is mild ground-glass infiltrate in the posterior basal segment of the left lower lobe and lateral basal segment, just above the hemidiaphragm, also not previously present. 2. No pleural effusions nor obvious new intrathoracic adenopathy. 3. Lung RADS Cat 3 - Probably Benign: Probably benign finding(s) - short term follow-up suggested; in clude nodules with a low likelihood of becoming a clinically active cancer. Lung-RADS 1.0 CATEGORIES: Category 0 - Prior chest CT exam(s) being located for comparison. Category 1 - Annual screening in 12 months. No nodules or definitely benign nodules. Category 2 - Annual screening in 12 months. Benign appearance. Nodules with low likelihood of becomin g active cancer. Category 3 - 6-month follow-up. Probably benign. Short-term follow-up suggested. Nodules with low lik elihood of becoming active cancer. Category 4A - 3-month follow-up and CT/PET if >8 mm in size. Suspicious finding. Findings which requi re additional testing. Category 4B - Findings which require additional testing and tissue sampling. Category 4X - Category 3 or 4 nodules with additional features or imaging findings that increases the suspicion of malignancy. Modifier S- Potentially clinically significant findings (non lung cancer) RADIATION DOSE DELIVERED: Total DLP DATA REPOSITORY: All CT scans at this facility are submitted to the National Radiology Data Registry (NRDR) Dose Index Registry (DIR) with the [employer] (ACR). RADIATION OPTIMIZATION: All CT scans at this facility use at least one of these dose optimization te chniques: automated exposure control; mA and/or kV adjustment per patient size (includes targeted exa ms where dose is matched to clinical indication); or iterative reconstruction.
== END ==
PROVIDERS: PCP Family Medicine; Visit Provider Nurse Practitioner Family
DX: F17.210 Nicotine dependence, cigarettes, uncomplicated (principal); J44.9 Chronic obstructive pulmonary disease, unspecified; Z12.31 Encounter for screening mammogram for malignant neoplasm of breast; Z12.2 Encounter for screening for malignant neoplasm of respiratory organs
CPT/HCPCS: 71271; 77063; 77067

== ENCOUNTER → 2023-04-26 02:38 | Outpatient (CLI) | payer MEDICAID, SELFPAY ==
--- NOTE | 2023-04-26 | DI.US_ITS ---
Exam(s) MG MAMMO SCREEN CALL BACK UNI US BREAST LT LIMITED EXAM: MG MAMMO SCREEN CALL BACK UNI-LEFT AND COMPLETE LEFT BREAST ULTRASOUND CLINICAL HISTORY: LT BREAST ASYMMETRIC DENSITY POSSIBLE NODULE R92.8 ABNL MAMMO. TECHNIQUE: Unilateral LEFT BREAST spot mammographic images obtained with 3D tomosynthesisand [employer] computer aided detection (CAD). . Complete LEFT breast Ultrasound was also performed, including all 4 quadrants, the retroareolar regio n, and the ipsilateral axilla. COMPARISON: Prior mammograms were reviewed. This additional imaging was performed due to findings described on the recent screening mammogram of 04/20/2023. FINDINGS: DIAGNOSTIC MAMMOGRAM: Additional mammographic views performed todayis equivocal. We proceeded with ultrasound... COMPLETE LEFT BREAST ULTRASOUND: Ultrasound performed today reveals no evidence of solid or significant cystic lesions in all 4 quadra nts.. Scanning of the ipsilateral axilla reveals no significant adenopathy. IMPRESSION: 1. No findings on ultrasound to correspond what was described on the recent screening mammogram. 2. Additional mammographic spot views equivocal. Appropriate follow-up is repeat left breast MAMMOGRAM in 6 months. The patient was informed of these findings and recommendations prior to leaving the department today. BI-RADS Category 3 - 6 month - Probably Benign Finding: Recommend follow-up mammography in 6 months Breast Density - Category B - Scattered areas of fibroglandular density Breast density Category C or D implies that the patient has dense breast tissue. Dense breast tissue can make it harder to find cancer on a mammogram. Dense breast tissue is also associated with an incr eased risk of breast cancer. This information about the result of the mammogram report was provided to the patient to raise their awareness. Use this report when you speak with the patient about their risks for breast cancer, which includes their family history. At that time, you may recommend additional screening tests (Ultrasoun d or MRI) as these tests may add significant information. A negative radiographic report should not delay biopsy if a dominant or clinically suspicious mass is present. Up to ten percent of cancers are not identified on mammography. A negative report may reinforce clinical impression. Adenosis and dense breasts may obscure an underlying neoplasm. False positive reports average 6 to 10%. Patient will receive a letter notifying them of these results.
== END ==
PROVIDERS: PCP Family Medicine; Visit Provider Nurse Practitioner Family
DX: Z12.31 Encounter for screening mammogram for malignant neoplasm of breast (principal); R92.8 Other abnormal and inconclusive findings on diagnostic imaging of breast
CPT/HCPCS: 76642; 77063; 77067

== ENCOUNTER → 2023-10-19 00:01 | Outpatient (CLI) | payer MEDICAID, SELFPAY ==
--- NOTE | 2023-10-19 10:00 | DI.MAMMO_ITS ---
Exam(s) MAMMO DIAGNOSTIC UNI EXAM: MAMMO DIAGNOSTIC UNI CLINICAL HISTORY: 6 month follow up,r92.8,z09,abnl mammo lt breast. TECHNIQUE: Craniocaudal and mediolateral oblique Full Field Digital Mammography views of the left br east with Computer Aided Diagnosis followed by Tomosynthesis. COMPARISON: Comparison is made with prior examinations. FINDINGS: Mammography/Tomosynthesis: Masses/Architectural Distortion: The area of concern on the prior examination is not present on the p rior examination. There is a stable nodule in the retroareolar region of the left breast on the MLO view. This is been unchanged compared to multiple prior mammograms. No suspicious masses or areas o f architectural distortion are seen. Microcalcifictions: No suspicious pleomorphic-type are seen. Skin Thickening/Nipple Retraction: None. IMPRESSION: 1. No evidence of malignancy is noted. 2. Unless there is more urgent need, follow-up screening mammography is recommended, as per [place] [employer] guidelines. 3. The findings were discussed with the patient on the date of the examination. BI-RADS Category 1 - Negative Breast Density - Category B - Scattered areas of fibroglandular density Breast density Category C or D implies that the patient has dense breast tissue. Dense breast tissue can make it harder to find cancer on a mammogram. Dense breast tissue is also associated with an incr eased risk of breast cancer. This information about the result of the mammogram report was provided to the patient to raise their awareness. Use this report when you speak with the patient about their risks for breast cancer, which includes their family history. At that time, you may recommend additional screening tests (Ultrasoun d or MRI) as these tests may add significant information. A negative radiographic report should not delay biopsy if a dominant or clinically suspicious mass is present. Up to ten percent of cancers are not identified on mammography. A negative report may reinforce clinical impression. Adenosis and dense breasts may obscure an underlying neoplasm. False positive reports average 6 to 10%. Patient will receive a letter notifying them of these results.
== END ==
PROVIDERS: PCP Family Medicine; Visit Provider Nurse Practitioner Family
DX: Z09 Encounter for follow-up examination after completed treatment for conditions other than malignant neoplasm (principal); R92.8 Other abnormal and inconclusive findings on diagnostic imaging of breast
CPT/HCPCS: 77061; 77065; G0279

== ENCOUNTER → 2023-11-24 01:32 | Outpatient (CLI) | payer MEDICAID, SELFPAY ==
--- NOTE | 2023-11-24 07:39 | DI.CT_ITS ---
Exam(s) CT CHEST WO EXAM: CT CHEST WO CLINICAL HISTORY: Screening for lung cancer, FORMER SMOKER, LUNG NODULE, HX RECURRENT PNEUMON. TECHNIQUE: Multi planar reconstructions were performed. CONTRAST MATERIAL: None COMPARISON: CT CT CHEST LUNG CANCER SCREEN from 04/20/2023 FINDINGS: CHEST: LUNGS: COPD findings again noted in both lung vyas. There has been almost complete resolution of t he previously present right lung infiltrate. Previously described infiltrate in the lower aspect of the right upper lobe has resolved. Also in the right middle lobe. Only remaining findings are mild benign-appearing subpleural increased markings in the lateral segment of the right middle lobe as wel l as in the medial basal segment of the right lower lobe, unchanged. No associated pleural effusion. In the opposite-left lung there are no infiltrates evident at present. There are no pleural effusions on either side. No new findings in trachea and mainstem bronchi. MEDIASTINUM: There is no obvious hilar nor mediastinal adenopathy. Visualized thyroid unremarkable.No obvious axillary adenopathy CARDIAC: Heart size is normal. There is no pericardial effusion.Caliber of the thoracic aorta is wit hin normal limits. VISUALIZED UPPER ABDOMEN:No adrenal masses. No splenomegaly. OSSEOUS: No significant osseous lesions.. IMPRESSION: 1. Significant improvement when compared to 04/20/2023 2. Decrease infiltrates and no pleural effusions nor intrathoracic adenopathy. RADIATION DOSE DELIVERED: 573.09mGy.cm Total DLP DATA REPOSITORY: All CT scans at this facility are submitted to the National Radiology Data Registry (NRDR) Dose Index Registry (DIR) with the [employer] (ACR). RADIATION OPTIMIZATION: All CT scans at this facility use at least one of these dose optimization te chniques: automated exposure control; mA and/or kV adjustment per patient size (includes targeted exa ms where dose is matched to clinical indication); or iterative reconstruction.
== END ==
PROVIDERS: PCP Family Medicine; Visit Provider Family Medicine
DX: Z87.891 Personal history of nicotine dependence (principal); R91.1 Solitary pulmonary nodule; Z87.01 Personal history of pneumonia (recurrent)
CPT/HCPCS: 71250

== ENCOUNTER 2023-12-08 12:56 | Outpatient (CLI) | payer MEDICAID, SELFPAY ==
[2023-12-08 14:15] LABS: Abs Immature Grans 0.01 10^3/uL (0.0-0.06); Absolute Basophil Count 0.03 10^3/uL (0.0-0.2); Absolute Eosinophil Count 0.12 10^3/uL (0.0-0.7); Absolute Lymphocyte Count 1.65 10^3/uL (1.2-3.4); Absolute Monocyte Count 0.62 10^3/uL (0.1-0.8); Absolute Neutrophil Count 4.15 10^3/uL (1.2-6.7); Basophils % 0.5 %; Eosinophils % 1.8 %; HCT 52.5 % (36.0-46.0); HGB 17.2 g/dL (11.2-15.7); Immature Grans % 0.2 %; Lymphocytes % 25.1 %; MCH 31.6 pg (27.0-33.0); MCHC 32.8 % (32.0-36.0); MCV 97 fL (80-95); MPV 10.9 fL (8.0-11.0); Monocytes % 9.4 %; Platelet Count 212 10^3/uL (130-400); RBC 5.44 10^6/uL (3.93-5.22); RDW 14.5 % (11.7-14.6); RDW-SD 51.2 fL; WBC 6.58 10^3/uL (4.4-10.8)
== END 2023-12-08 12:57 | disposition home or self-care (01) ==
LOC: LBO 12:57
PROVIDERS: PCP Family Medicine; Visit Provider Family Medicine
DX: R23.3 Spontaneous ecchymoses (principal)
CPT/HCPCS: 36415; 85025

== ENCOUNTER 2023-12-29 12:01 | Outpatient (CLI) | payer MEDICAID, SELFPAY ==
[2023-12-29 19:16] LABS: IgE 166 IU/mL (<158)
== END 2023-12-29 12:02 | disposition home or self-care (01) ==
LOC: LBO 12:01
PROVIDERS: PCP Family Medicine; Visit Provider Internal Medicine Critical Care Medicine
DX: R91.8 Other nonspecific abnormal finding of lung field (principal); J44.9 Chronic obstructive pulmonary disease, unspecified; Z87.891 Personal history of nicotine dependence
CPT/HCPCS: 36415; 82785

== ENCOUNTER 2024-04-21 10:50 | Outpatient (REF) | payer MEDICAID, SELFPAY ==
--- NOTE | 2024-04-21 08:20 | PAPFT_PTH ---
PATIENT: Mary Lou Billingsley LOC: [facility] U#:[id number] AGE/SX: 64/F ROOM: RE04/21/[address]: Jaylin Valdivia : 1960 BED: DIS: 04/21/2024 SPEC #: [id number] RECD: 04/21/24 11:30 STATUS: [facility] REQ #: [id number] SABIHA: 04/21/24 08:[address]: Jaylin Valdivia DEPT: [facility] Cytology RECD BY: Kenia Milton Tissues: 1 - CX/ENDOCX FOR PAP SMEARS Procedures: PAP THIN PREP/[facility] Screening HPV DNA PROBE Comments: [id number] (HPV 16 & 18/45)
== END 2024-04-21 10:51 | disposition home or self-care (01) ==
LOC: LBN 10:50
PROVIDERS: PCP Family Medicine; Visit Provider Family Medicine
DX: Z23 Encounter for immunization (principal); J44.9 Chronic obstructive pulmonary disease, unspecified; E66.01 Morbid (severe) obesity due to excess calories; N81.4 Uterovaginal prolapse, unspecified; N39.46 Mixed incontinence
CPT/HCPCS: 88142; 87624

== ENCOUNTER 2024-05-09 16:42 | Outpatient (CLI) | payer MEDICAID, SELFPAY ==
[2024-05-09 15:35] LABS: Hemoglobin A1C 5.9 % (<5.7)
[2024-05-09 17:07] LABS: ALT 32 U/L (14-59); AST 21 U/L (15-37); Albumin 3.8 g/dL (3.4-5.0); Alkaline Phosphatase 106 U/L (46-116); Anion Gap 8.5 mmol/L (3-11); BUN 20 mg/dL (7-18); Bilirubin, Total 0.38 mg/dL (0.2-1.0); CO2 28.5 mmol/L (21.0-32.0); CREATININE 0.8 mg/dL (0.55-1.02); Calcium 9.7 mg/dL (8.5-10.1); Calculated LDL 101 mg/dL (<100); Chloride 105 mmol/L (98-107); Cholesterol 192 mg/dL (<200); Estimated GFR 83.26 (mL/min/1.73m2); Glucose 98 mg/dL (74-106); HDL Cholesterol 75 mg/dL (40-60); Potassium 3.8 mmol/L (3.5-5.1); Sodium 142 mmol/L (136-145); Total Protein 7.6 g/dL (6.4-8.2); Triglyceride 82 mg/dL (<150)
== END 2024-05-09 16:43 | disposition home or self-care (01) ==
LOC: LBO 16:43
PROVIDERS: PCP Family Medicine; Visit Provider Family Medicine
DX: Z00.00 Encounter for general adult medical examination without abnormal findings (principal); E66.01 Morbid (severe) obesity due to excess calories; Z68.41 Body mass index [BMI] 40.0-44.9, adult; R73.01 Impaired fasting glucose; Z13.6 Encounter for screening for cardiovascular disorders; E78.5 Hyperlipidemia, unspecified
CPT/HCPCS: 36415; 80053; 80061; 83036

== ENCOUNTER 2024-09-12 03:53 | Outpatient (CLI) | payer MEDICAID, SELFPAY ==
[2024-09-12 12:25] LABS: Abs Immature Grans 0.02 10^3/uL (0.0-0.06); Absolute Basophil Count 0.03 10^3/uL (0.0-0.2); Absolute Eosinophil Count 0.15 10^3/uL (0.0-0.7); Absolute Lymphocyte Count 1.67 10^3/uL (1.2-3.4); Absolute Monocyte Count 0.51 10^3/uL (0.1-0.8); Absolute Neutrophil Count 4.14 10^3/uL (1.2-6.7); Basophils % 0.5 %; Eosinophils % 2.3 %; HGB 16.1 g/dL (11.2-15.7); Immature Grans % 0.3 %; Lymphocytes % 25.6 %; MCH 32.5 pg (27.0-33.0); MCHC 32.9 % (32.0-36.0); MCV 99 fL (80-95); Monocytes % 7.8 %; Neutrophils % 63.5 %; Platelet Count 202 10^3/uL (130-400); RBC 4.96 10^6/uL (3.93-5.22); RDW 13.6 % (11.7-14.6); RDW-SD 49.9 fL; WBC 6.52 10^3/uL (4.4-10.8)
[2024-09-12 12:50] LABS: Hemoglobin A1C 5.8 % (<5.7)
[2024-09-12 13:11] LABS: ALT 35 U/L (14-59); AST 24 U/L (15-37); Albumin 3.9 g/dL (3.4-5.0); Alkaline Phosphatase 100 U/L (46-116); BUN 15 mg/dL (7-18); Bilirubin, Total 0.5 mg/dL (0.2-1.0); CREATININE 0.8 mg/dL (0.55-1.02); Calcium 9.3 mg/dL (8.5-10.1); Chloride 106 mmol/L (98-107); Estimated GFR 83.26 (mL/min/1.73m2); Glucose 97 mg/dL (74-106); Potassium 4.4 mmol/L (3.5-5.1); Sodium 141 mmol/L (136-145); TSH (W/Ref FT4) 2.78 uIU/mL (0.36-3.74); Total Protein 7.3 g/dL (6.4-8.2)
== END 2024-09-12 03:54 | disposition home or self-care (01) ==
LOC: LOS 03:54
PROVIDERS: PCP Family Medicine; Visit Provider Family Medicine
DX: E66.01 Morbid (severe) obesity due to excess calories (principal); Z68.41 Body mass index [BMI] 40.0-44.9, adult; Z00.00 Encounter for general adult medical examination without abnormal findings; R73.01 Impaired fasting glucose; E03.9 Hypothyroidism, unspecified
CPT/HCPCS: 36415; 80053; 83036; 84443; 85025

== ENCOUNTER 2024-09-27 00:31 | Outpatient (CLI) | payer MEDICAID, SELFPAY ==
--- NOTE | 2024-09-27 09:38 | DI.CT_ITS ---
Exam(s) CT CHEST WO EXAM: CT CHEST WO CLINICAL HISTORY: f/u lung opacity,R91.8 TECHNIQUE: Imaging Protocol: Axial computed tomography images with coronal and sagittal reformatted images were created and reviewed. Computer aided detection (CAD) was utilized. CONTRAST MATERIAL: Noncontrast COMPARISON: CT CT CHEST LUNG CANCER SCREEN from 04/20/[address] CHEST WO from 11/24/2023 FINDINGS: Pulmonary parenchyma: No consolidation. No dominant measurable mass. Mild scarring in the right midd le lobe. Moderate emphysematous changes, greater in the upper lobes. No ground-glass infiltrates. No suspicious pulmonary nodules. Tracheobronchial tree: No bronchiectasis or mucous plugging. Mediastinum and Ly: No dominant adenopathy or fluid collection. Pleura: No effusion. No pneumothorax. Heart: The heart is not dilated. Mild coronary artery calcifications are seen. Aorta: Thoracic aorta non-dilated. Mild atherosclerotic changes. Upper abdomen: No acute findings. Enlarged liver with hepatic steatosis. Bones: Degenerative changes in the spine. Soft tissues: Unremarkable. IMPRESSION: No acute abnormality.Moderate emphysematous changes. No evidence of infiltrates. RADIATION DOSE DELIVERED: 367.9mGy.cm Total DLP DATA REPOSITORY: All CT scans at this facility are submitted to the National Radiology Data Registry (NRDR) Dose Index Registry (DIR) with the [employer] (ACR). RADIATION OPTIMIZATION: All CT scans at this facility use at least one of these dose optimization te chniques: automated exposure control; mA and/or kV adjustment per patient size (includes targeted exa ms where dose is matched to clinical indication); or iterative reconstruction.
== END 2024-09-27 00:51 ==
LOC: DI 00:31
PROVIDERS: PCP Family Medicine; Visit Provider Internal Medicine Critical Care Medicine
DX: R91.8 Other nonspecific abnormal finding of lung field (principal)
CPT/HCPCS: 71250

== ENCOUNTER 2024-09-27 14:04 | Outpatient (REF) | payer MEDICAID, SELFPAY | END 2024-09-27 14:05 | disposition home or self-care (01) | LOC: LBN 14:04 | PROVIDERS: PCP Family Medicine; Visit Provider Obstetrics & Gynecology | DX: N39.46 Mixed incontinence (principal) | CPT/HCPCS: 87077; 87086; 87186 ==

== ENCOUNTER 2024-10-26 03:47 | Outpatient (CLI) | payer MEDICAID, SELFPAY ==
[2024-10-26] MEDS: Inhaler, Assist Device 1 EACH MC (14:13)
[2024-10-26] MEDS: Levalbuterol HFA 15 GM INH 4 PUFF IH (14:14)
--- NOTE | 2024-11-12 14:17 | W.PFT ---
Date of service: 10/26/24 Time of Service: 13:02 Pulmonary Function Test Result Indications: Asthma/COPD Overlap Interpretation Spirometry: There is moderate airflow limitation. No bronchodilator response Lung Volumes: There is air trapping Diffusion Capacity: Normal diffusion Airway Pressure: Normal airways resistance Impression Moderate airflow obstruction with air trapping and a normal diffusion Clinical Correlation therefore is recommended.
== END 2024-10-26 03:48 | disposition home or self-care (01) ==
LOC: RT 03:48
PROVIDERS: PCP Family Medicine; Visit Provider Student in an Organized Health Care Education/Training Program
DX: J44.9 Chronic obstructive pulmonary disease, unspecified (principal)
CPT/HCPCS: 94060; 94726; 94729

== ENCOUNTER 2025-04-04 14:45 | Outpatient (REF) | payer MEDICAID, SELFPAY ==
[2025-04-04 17:49] LABS: Glucose Negative (Negative)
[2025-04-04 18:05] LABS: C & S Indicated? No; WBC Negative HPF (0-5)
== END 2025-04-04 14:46 | disposition home or self-care (01) ==
LOC: LBN 14:45
PROVIDERS: PCP Family Medicine; Visit Provider Student in an Organized Health Care Education/Training Program
DX: R35.0 Frequency of micturition (principal)
CPT/HCPCS: 81003; 81015